=== PATIENT | female | born 1935 | race Caucasian/White ===

== ENCOUNTER → 2019-11-16 10:04 | Outpatient (CLI) | payer MEDICARE, OTHER, SELFPAY ==
--- NOTE | ~2019-11-16 | MR_ITS ---
EXAMINATION: MR lumbar spine wo con EXAM DATE: 11/16/2019 10:41 INDICATION: Radiculopathy, lumbosacral region. Low back pain. TECHNIQUE: Multi-sequential, multiplanar MR images of the lumbar spine were obtained without contrast . Sagittal T1, T2, T2 fat saturation images. Axial T2 weighted images. Comparison is made to prior examination from 11/12/2018. FINDINGS: There is 6 mm anterolisthesis L4 on L5 with moderate disc disease at this level. Also moder ate loss of the L3-4 disc. Mild disc disease at L1-2 and L5-S1. There is 2-3 mm retrolisthesis L1 on L2. There are no suspicious marrow signal abnormalities. The conus medullaris terminates at the T12 l evel and has normal signal intensity and morphology. Paraspinal soft tissue is unremarkable. Level by level evaluation: T12-L1: Disc does not extend beyond the endplate margin. Facet arthropathy: Mild. Neural foraminal stenosis: No stenosis. Central canal stenosis: No stenosis. L1-L2: There is a mild to moderate diffuse disc bulge. Facet arthropathy: Mild. Neural foraminal stenosis: Minimal bilateral. Central canal stenosis: Mild. L2-L3: There is a mild diffuse disc bulge. Facet arthropathy: Mild to moderate . Ligamentum flavum enlargement. Neural foraminal stenosis: No stenosis. Central canal stenosis: Mild. L3-L4: There is a mild to moderate diffuse disc bulge. Facet arthropathy: Mild to moderate. Neural foraminal stenosis: Moderate bilateral. Central canal stenosis: Mild to moderate. L4-L5: There is a large diffuse disc bulge. Facet arthropathy: Severe. Evidence of left hemilaminotomy. Synovial cysts bilaterally projecting int o spinal canal below disc space level. Neural foraminal stenosis: Moderate to severe left, moderate right. Central canal stenosis: Moderate to severe. L5-S1: There is a mild to moderate diffuse disc bulge. Facet arthropathy: Moderate to severe left, moderate right. Neural foraminal stenosis: Mild to moderate bilateral. Central canal stenosis: Mild. Compared to last year, slight decrease in size of synovial cysts at L4-5, slight progression the loss of disc height at this level. IMPRESSION: 1. L4-5 grade 2 anterolisthesis, moderate to severe central canal stenosis. 2. Lesser spondylosis above. Reviewed, dictated and finalized at location A.
== END ==
PROVIDERS: PCP Physician Assistant; Visit Provider Nurse Practitioner Family
DX: M54.17 Radiculopathy, lumbosacral region (principal)
CPT/HCPCS: 72148

== ENCOUNTER → 2021-07-26 10:19 | Outpatient (CLI) | payer MEDICARE, OTHER, SELFPAY ==
--- NOTE | ~2021-07-26 | MR_ITS ---
EXAMINATION: MR lumbar spine wo con DATE: 07/26/2021 11:07 INDICATION: Lumbar radiculopathy. Low back pain. Postlaminectomy syndrome. TECHNIQUE: Magnetic resonance imaging (MRI) of the lumbar spine was performed without intravenous con trast. Sequences included sagittal T2-weighted FSE, sagittal T2-weighted FS FSE, sagittal T1-weighted FSE, and axial T2-weighted FSE. COMPARISON: Lumbar spine MRI 11/16/2019 FINDINGS: There is 3 degrees levocurvature of lumbar spine. There is 6 mm anterolisthesis of L4 on L5 . There is mild chronic anterior wedging of T11 vertebral body. There is mildly decreased disc height at L1-L2, moderately decreased disc height at L3-L4, and severely decreased disc height at L4-L5 and L5-S1. The distal spinal cord signal intensity is normal. The conus medullaris is at T12-L1. The fol lowing disc levels are specifically discussed: L1-L2: The disc is bulging. There is mild bilateral facet joint osteoarthritis. There is mild bilater al neural foraminal stenosis. There is mild central canal stenosis. L2-L3: The disc is bulging. There is moderate bilateral facet joint osteoarthritis. There is mild nell ateral neural foraminal stenosis. There is no central canal stenosis. L3-L4: The disc is bulging and has an annular fissure. There is severe bilateral facet joint osteoart hritis. There is moderate bilateral neural foraminal stenosis. There is mild central canal stenosis w ith posterior decompression. L4-L5: The disc is bulging and has an annular fissure. There is severe bilateral facet joint osteoart hritis. There is moderate right and severe left neural foraminal stenosis. There is mild central kathleen l stenosis with posterior decompression. There is severe stenosis of the lateral recesses. L5-S1: The disc is bulging and has an annular fissure. There is severe bilateral facet joint osteoart hritis. There is moderate right and mild left neural foraminal stenosis. There is mild central canal stenosis. IMPRESSION: 1. Severe lumbar spondylosis, stable from 11/16/2019. Reviewed, dictated and finalized at location A.
== END ==
PROVIDERS: PCP Physician Assistant; Visit Provider Nurse Practitioner Family
DX: M47.27 Other spondylosis with radiculopathy, lumbosacral region (principal); M96.1 Postlaminectomy syndrome, not elsewhere classified
CPT/HCPCS: 72148

== ENCOUNTER → 2023-02-02 09:16 | Outpatient (CLI) | payer MEDICARE, OTHER, SELFPAY ==
--- NOTE | ~2023-02-02 | MR_ITS ---
MRI of the lumbar spine Clinical History: Back pain Technique: Axial T2-weighted images, and sagittal T1-weighted, T2-weighted, and and T2 fat-sat images were acquired. COMPARISON: 07/26/2021 FINDINGS: No acute fracture seen. 7 mm anterolisthesis of L4 over L5 is present, similar to prior exa m. No suspicious bone marrow signal abnormality seen. At L1-L2, there is mild disc bulge with mild facet arthropathy. No central canal stenosis. There is m inimal bilateral neural foraminal narrowing. At L2-L3, there is no significant disc bulge or herniation. There is moderate facet arthropathy. No s collin canal stenosis or neural foraminal narrowing. L3-L4, there is minimal disc bulge and moderate facet arthropathy. No central canal stenosis. There i s severe bilateral neural foraminal narrowing. At L4-L5, there is disc bulge/uncovering, with severe facet arthropathy and mild to moderate central canal stenosis. There is severe bilateral neural foraminal compromise. At L5-S1, there is diffuse disc bulge with advanced facet arthropathy. No central canal stenosis. The re is severe bilateral neural foraminal comprise. Paravertebral soft tissues are unremarkable. Impression: Severe degenerative spondylosis at L3-L4, L4-L5, and L5-S1. 7 mm anterolisthesis of L4 over L5. Reviewed, dictated and finalized at location M. Impression: Severe degenerative spondylosis at L3-L4, L4-L5, and L5-S1. 7 mm anterolisthesis of L4 over L5.
== END ==
PROVIDERS: PCP Physician Assistant; Visit Provider Physician Assistant
DX: M47.26 Other spondylosis with radiculopathy, lumbar region (principal)
CPT/HCPCS: 72148

== ENCOUNTER 2023-02-18 13:15 | Outpatient (CLI) | payer MEDICARE, OTHER, SELFPAY ==
--- NOTE | ~2023-02-18 | MM_ITS ---
EXAMINATION: MM screening kamryn BI w joi HISTORY: Screening TECHNIQUE: Craniocaudal and mediolateral oblique 3-D tomosynthesis images were obtained and synthetic 2-D images were generated. CAD analysis was submitted and interpreted. COMPARISON: Comparison to multiple prior studies sequentially, with oldest reviewed study dated 05/2014. BREAST PARENCHYMAL COMPOSITION: There are scattered areas of fibroglandular density. FINDINGS: There is no evidence of suspicious mass, calcification, or architectural distortion to sugg est malignancy in either breast. There has been no suspicious interval change. IMPRESSION: 1. No mammographic evidence of malignancy. 2. Recommend routine screening mammography in one year. BI-RADS Category 1: Negative Reviewed, dictated and finalized at location A. MECHANICAL ENGINEER
== END 2023-02-18 13:16 ==
PROVIDERS: PCP Physician Assistant; Visit Provider Internal Medicine Medical Oncology
DX: Z12.31 Encounter for screening mammogram for malignant neoplasm of breast (principal)
CPT/HCPCS: 77063; 77067

== ENCOUNTER 2024-07-31 10:46 | Outpatient (CLI) | payer MEDICARE, OTHER, SELFPAY ==
--- NOTE | ~2024-07-31 | MR_ITS ---
MRI of the lumbar spine Clinical History: Radiculopathy Technique: Axial T2-weighted images, and sagittal T1-weighted, T2-weighted, and T2 fat-sat images wer e acquired. COMPARISON: 02/02/2023 Findings: 8 mm anterolisthesis of L4 over L5 is essentially stable from prior exam. No acute fracture . No suspicious bone marrow signal abnormality. At L1-L2, there is minimal disc bulge with moderate facet arthropathy. No central canal stenosis. The re is mild bilateral neural foraminal narrowing. At L2-L3, there is no disc bulge or herniation. There is moderate facet arthropathy. No central canal stenosis or neural foraminal narrowing. At L3-L4, there is mild diffuse disc bulge with moderate facet arthropathy. No central canal stenosis . There is severe bilateral neural foraminal compromise, left worse than right. At L4-L5, there is diffuse disc bulge and uncovering with severe facet arthropathy. There is moderate central canal stenosis. There is severe bilateral neural foraminal compromise. At L5-S1, there is advanced degenerative disc narrowing. There is diffuse disc bulge with severe face t arthropathy. There is 5 mm left synovial cyst. There is no ayaan central canal stenosis. There is s evere bilateral neural foraminal compromise. Paravertebral soft tissues are unremarkable. Impression: 8 mm anterolisthesis of L4 over L5. Severe degenerative spondylosis at L4-L5 and L5-S1. Moderate to severe degenerative spondylosis at L3 -L4. Reviewed, dictated and finalized at [facility]. Impression: 8 mm anterolisthesis of L4 over L5. Severe degenerative spondylosis at L4-L5 and L5-S1. Moderate to severe degenera tive spondylosis at L3-L4.
== END 2024-07-31 10:47 | disposition home or self-care (01) ==
LOC: MICIMG 10:47
PROVIDERS: PCP Physician Assistant; Visit Provider Physician Assistant
DX: M47.26 Other spondylosis with radiculopathy, lumbar region (principal)
CPT/HCPCS: 72148

== ENCOUNTER 2024-08-11 13:41 | Outpatient (CLI) | payer MEDICARE, OTHER, SELFPAY ==
--- NOTE | 2024-08-11 | ECHO_ITS ---
Patient Info Name: Xin Olivares Age: 88 years : 1935 Gender: Female Ht: 62 in Wt: 154 lbs BSA: 1.77 m2 HR: 97 bpm BP: 156 / 77 mmHg Technical Quality: Good Exam Date: 08/11/2024 1:59 PM Exam Location: Echo Lab Patient Status: Outpatient Admit Date: 08/11/2024 Staff Ordering Physician: RaniBernice Power Mule Operator: Claudia Craft RDCS Attending Provider: RaniBernice Exam Type: CA echo doppler color flow Study Info Indications R06.02 - SOB on exertion R01.1 - Cardiac murmur, unspecified Complete two-dimensional, color flow and Doppler transthoracic echocardiogram is performed. Summary 1. Complete two-dimensional, color flow and Doppler transthoracic echocardiogram is performed. 2. Left ventricular systolic function is normal, estimated at 60-65%. 3. The left ventricular diastolic function is indeterminate. 4. Left atrial chamber dimension is enlarged. 5. The mitral valve has thickened leaflets, calcified leaflets and calcified annulus. Cannot rule out a flail leaflet. 6. There is moderate to severe mitral valve regurgitation. Recommendations * Consider KEO for further evaluation of mitral valve. Left Ventricle Left ventricular chamber dimension is normal. Left ventricular systolic function is normal, estimated at 60-65%. There is no increased left ventricular wall thickness. Left ventricular septal wall motion is normal. The left ventricular diastolic function is indeterminate. Right Ventricle Right ventricular chamber dimension is normal. Right ventricular systolic function is normal. Left Atria Left atrial chamber dimension is enlarged. Right Atria Right atrial chamber dimension is normal. Aortic Valve The aortic valve is trileaflet. There is no aortic valve sclerosis. There is no aortic valve stenosis. There is no aortic valve regurgitation. Pulmonic Valve The pulmonic valve is normal. There is no pulmonic valve stenosis. There is mild pulmonic regurgitation. Mitral Valve The mitral valve has thickened leaflets, calcified leaflets and calcified annulus. Cannot rule out a flail leaflet. There is moderate to severe mitral valve regurgitation. Tricuspid Valve The tricuspid valve leaflets are normal. There is no significant tricuspid valve stenosis. There is mild tricuspid valve regurgitation. No pulmonary hypertension, estimated pulmonary arterial systolic pressure is 38 mmHg. Pericardium/Pleural The pericardium appears normal. There is no pericardial effusion. Inferior Vena Cava Normal inferior vena cava with >50% collapse upon inspiration consistent with normal right atrial pressure, 3 mmHg. Aorta The aortic root size at the sinus of Valsalva is normal. The prox ascending aorta size is normal. Left Ventricular Outflow Tract Name Value Normal LVOT 2D LVOT Diameter 1.8 cm LVOT Doppler LVOT Peak Gradient 6 mmHg LVOT Mean Gradient 3 mmHg LVOT VTI 23 cm LVOT VTI/AV VTI Ratio 0.6 LVOT Stroke Volume 60 ml LVOT CO 13.1 l/min LVOT CI 7.4 l/min/m2 Pulmonic Valve Name Value Normal PV Doppler PV Peak Gradient 4 mmHg Mitral Valve Name Value Normal MV Doppler MV Peak Gradient 22 mmHg MV Mean Gradient 10 mmHg MV Decel [place] 1,032 cm/s2 MV PHT 46 ms MV Area (PHT) 4.7 cm2 4.0-5.0 MV Area (Cont Eq VTI) 1.3 cm2 MV Diastolic Function MV E Peak Velocity 165 cm/s MV A Peak Velocity 205 cm/s MV E/A 0.8 MV Decel Time 160 ms MV Annular TDI MV E/e' (Septal) 31.5 <=8.0 MV E/e' (Lateral) 17.3 <=8.0 MV E/e' (Average) 24.4 Tricuspid Valve Name Value Normal TV Regurgitation Doppler TR Peak Velocity 295 cm/s TR Peak Gradient 32 mmHg Estimated PAP/RSVP RA Pressure 3 mmHg <=5 PA Systolic Pressure 38 mmHg <36 RV Systolic Pressure 38 mmHg <36 Aorta Name Value Normal Ascending Aorta Ao Root Diameter (MM) 2.9 cm Ao Root Diam Index (MM) 1.6 cm/m2 Aortic Valve Name Value Normal AV Doppler AV Peak Velocity 187 cm/s AV Peak Gradient 14 mmHg AV Mean Gradient 9 mmHg AV VTI 39 cm AV Area (Cont Eq VTI) 1.5 cm2 >=3.0 AV Area (Cont Eq Hang) 1.7 cm2 AV Regurgitation 2D LVOT Area 2.6 cm2 Ventricles Name Value Normal LV Dimensions 2D/MM IVS Diastolic Thickness (2D) 1.0 cm 0.6-1.0 LVID Diastole (2D) 4.0 cm 3.8-5.2 LVIW Diastolic Thickness (2D) 0.9 cm 0.6-0.9 LVID Systole (2D) 2.4 cm 2.2-3.5 LVOT Diameter 1.8 cm LV Mass (2D Cubed) 118.08 g 67.00-162.00 LV Mass Index (2D Cubed) 67 g/m2 43-95 Relative Wall Thickness (2D) 0.46 LV Fractional Shortening/Ejection Fraction 2D/MM LV Fractional Shortening (2D) 39 % 27-45 LV EF (2D Teichomerz) 70 % 54-74 LV Diastolic Volume (4C MOD) 59 ml LV EF (4C MOD) 66 % LV Diastolic Volume (2C MOD) 83 ml LV EF (2C MOD) 68 % LV Diastolic Volume (BP MOD) 70 ml 46-106 LV Diastolic Volume Index (BP MOD) 39 ml/m2 29-61 LV Systolic Volume (BP MOD) 23 ml 14-42 LV Systolic Volume Index (BP MOD) 13 ml/m2 8-24 LV EF (BP MOD) 67 % 54-74 LV Diastolic Length (4C) 6.7 cm LV Systolic Length (4C) 5.3 cm LV Stroke Volume (4C MOD) 39 ml RV Dimensions 2D/MM RVID Diastole (2D) 3.3 cm 2.5-3.5 Atria Name Value Normal LA Dimensions LA Dimension (MM) 3.9 cm 2.7-3.8 LA Volume (4C A-L) 121 ml LA Volume (BP A-L) 130 ml RA Dimensions RA Area (4C) 12.2 cm2 <=18.0 Report Signatures
--- OUTSIDE RECORDS SUMMARY | 2024-08-12 14:07 | XMS_ITS | Clinical Summary ---
Author Organization [facility] Address [facility] [place] [address] Care Team Providers Care Surveyor Hydrographic Name Role Phone Bernice Saravia Primary Care Provider [phone] Denis Dao MD Unavailable [phone] Misti Sanches NP Unavailable [phone] Allergies Active Allergy Reactions Criticality Noted Date Comments Hydrocodone Stomach upset Low 07/30/2016 Stomach/GI Upset Indapamide Other (See comments) Low 09/23/2018 hyponatremia Lisinopril Cough Low 09/13/2019 Hydrocodone-Acetaminoph en Unknown 11/08/2017 Medications calcium carbonate-vitamin D3 500 mg(1,250mg) -400 unit tablet Take 1 tablet by mouth 2 (two) times a day 60 tablet 3 05/10/19 20 Active Narcan 4 mg/actuation spray,non-aerosol 03/04/20 20 Active gabapentin (NEURONTIN) 600 mg tablet Take 1 tablet (600 mg total) by mouth 3 (three) times a day 270 tablet 4 07/28/19 24 Active losartan (COZAAR) 100 mg tabletIndications :Hypertension associated with diabetes (HCC) TAKE 1 TABLET BY MOUTH DAILY 90 tablet 3 10/13/19 24 Active omeprazole (PriLOSEC) 20 mg capsuleIndication s:Gastroesophagea l reflux disease without esophagitis Take 2 capsules (40 mg total) by mouth daily 01/19/20 24 Active traZODone (DESYREL) 150 mg tabletIndications :Anxiety TAKE 1 TABLET BY MOUTH AT NIGHT 90 tablet 3 06/07/19 25 Active amLODIPine (NORVASC) 5 mg tabletIndications :Hypertension associated with diabetes (HCC) TAKE 1 TABLET BY MOUTH DAILY 90 tablet 3 06/07/19 25 Active levothyroxine (SYNTHROID) 75 mcg tabletIndications :Acquired hypothyroidism TAKE 1 TABLET BY MOUTH DAILY 90 tablet 3 06/07/[address] (CYMBALTA) 60 mg capsuleIndication s:Anxiety TAKE 1 CAPSULE BY MOUTH TWICE DAILY 180 capsule 3 07/13/19 25 Active ipratropium (ATROVENT) 42 mcg (0.06 %) nasal sprayIndications: Non-seasonal allergic rhinitis, unspecified trigger Administer 2 sprays into each nostril 4 (four) times a day 15 mL 2 07/20/19 Active metFORMIN (GLUCOPHAGE) 500 mg tabletIndications :Controlled type 2 diabetes mellitus with complication, without long-term current use of insulin (HCC) TAKE 1 TABLET BY MOUTH DAILY 90 tablet 3 06/07/192024 Discontinued Active Problems Problem Noted Date Diagnosed Date Non-seasonal allergic rhinitis 07/31/2024 Assessment & Plan (08/04/2024 9:36 PM CDT): Continue antihistamine and Flonase as needed Murmur 07/31/2024 Assessment & Plan (08/04/2024 9:38 PM CDT): This is a significant, separately identifiable problem that was evaluated and managed on the same day as the wellness exam Patient has noticed increased shortness of breath. On exam a new murmur was audible. Systolic blowing murmur. Suspect aortic stenosis. She has not had any problems in the past. Will order echo for evaluation of heart structure and make referral to Cardiology. If patient would begin to experience chest pain increased shortness of breath swelling in the legs difficulty laying flat she is to go to the ER for further evaluation immediately. She is in agreement of the plan SOB (shortness of breath) on exertion 07/31/2024 Assessment & Plan (08/04/2024 9:38 PM CDT): This is a significant, separately identifiable problem that was evaluated and managed on the same day as the wellness exam Patient has noticed increased shortness of breath. On exam a new murmur was audible. Systolic blowing murmur. Suspect aortic stenosis. She has not had any problems in the past. Will order echo for evaluation of heart structure and make referral to Cardiology. If patient would begin to experience chest pain increased shortness of breath swelling in the legs difficulty laying flat she is to go to the ER for further evaluation immediately. She is in agreement of the plan Obesity (BMI 30-39.9) 01/13/2023 Assessment & Plan (07/19/2024 1:21 PM CDT): Discussed the patient's BMI. The BMI is above average. BMI management plan is completed. BMI Follow-up includes: nutrition counseling, exercise counseling and education provided. Assessment & Plan (01/19/2024 2:46 PM CDT): Discussed the patient's BMI. The BMI is above average. BMI management plan is completed. BMI Follow-up includes: nutrition counseling, exercise counseling and education provided. Assessment & Plan (08/09/2023 1:21 AM CDT): Discussed the patient's BMI. The BMI is above average. BMI management plan is completed. BMI Follow-up includes: nutrition counseling, exercise counseling and education provided. Assessment & Plan (01/13/2023 1:46 PM CDT): Discussed the patient's BMI. The BMI is above average. BMI management plan is completed. BMI Follow-up includes: nutrition counseling, exercise counseling and education provided. BMI 29.0-29.9,adult 01/13/2023 Assessment & Plan (08/04/2024 9:36 PM CDT): Weight/BMI is in healthy range. Continue healthy lifestyle to maintain. Assessment & Plan (01/19/2024 2:46 PM CDT): Discussed the patient's BMI. The BMI is above average. BMI management plan is completed. BMI Follow-up includes: nutrition counseling, exercise counseling and education provided. Assessment & Plan (08/09/2023 1:22 AM CDT): Discussed the patient's BMI. The BMI is above average. BMI management plan is completed. BMI Follow-up includes: nutrition counseling, exercise counseling and education provided. Assessment & Plan (01/13/2023 1:46 PM CDT): Discussed the patient's BMI. The BMI is above average. BMI management plan is completed. BMI Follow-up includes: nutrition counseling, exercise counseling and education provided. Bilateral hand numbness 01/13/2023 Assessment & Plan (01/13/2023 6:14 PM CDT): Symptoms distribution of numbness seem consistent with bilateral carpal tunnel. Reviewed pathophysiology as well as pictures to indicate the nurse involved. Discussed treatment options and prevention options including repetitive motion. Encouraged cock-up splints at night and during the day as tolerated. She is already on gabapentin for her back. Can use an anti-inflammatory as tolerated. Discussed referral to surgeon for intervention or monitoring short term to see if we can get improvement. She prefers more conservative measures so will have her call in a couple of months to see if her symptoms have improved. If they persist will consider referral to Dr. Misti Palma at [facility]. Medicare annual wellness visit, subsequent 07/31 Assessment & Plan (08/04/2024 9:33 PM CDT): Encouraged healthy lifestyle, good nutrition and exercise. Encouraged Calcium and Vitamin D and weight bearing exercise for bone health. Reviewed immunizations. Reviewed age appropirate screenings. Medicare Wellness Documentation is completed within the chart Assessment & Plan (01/19/2024 2:45 PM CDT): Encouraged and provided tools for healthy lifestyle, diet, and daily exercise. Reviewed immunizations and age appropriate labs and screenings. Assessment & Plan (08/09/2023 1:21 AM CDT): Encouraged healthy lifestyle, good nutrition and exercise. Encouraged Calcium and Vitamin D and weight bearing exercise for bone health. Reviewed immunizations. Reviewed age appropirate screenings. Medicare Wellness Documentation is completed within the chart Assessment & Plan (07/31/2022 10:50 PM CDT): Encouraged healthy lifestyle, good nutrition and exercise. Encouraged Calcium and Vitamin D and weight bearing exercise for bone health. Reviewed immunizations. Reviewed age appropirate screenings. Medicare Wellness Documentation is completed within the chart Personal history of radiation therapy 06/16/2021 History of 2019 novel coronavirus disease (COVID -19) 05/19/2020 Assessment & Plan (05/19/2020 9:09 PM BOROUGH COORDINATOR): Patient to presume positive COVID until results are available and self isolate for 14 days from the onset of sxs. Check COVID test thru [facility] collection site in [place]. Treat sxs with Tylenol, Cough/cold medication otc and add VitD 5,000IU daily and Zinc 50mg daily. Monitor sxs and call or go to the ER if has any of the following: --trouble breathing --persistent pain or pressure in the chest --new confusion --inability to wake or stay awake -- bluish lips or face If patient has been in close contact with anyone, they should be notified and instructed to quarantine per CDC guidelines for 14 days after last exposure to the positive COVID patient and monitor closely for symptoms of COVID. If they appear they should be tested. Close contact includes: --You were within 6 feet of someone who has COVID-19 for a total of 15 minutes or more --You provided care at home to someone who is sick with COVID-19 --You had direct physical contact with the person (hugged or kissed them) --You shared eating or drinking utensils --They sneezed, coughed, or somehow got respiratory droplets on you Additional Steps to avoid exposure/spread include: Avoid crowded places where close contact with others may occur, such as shopping centers, movie theaters, dormitories, or stadiums. Avoid transit where close contact with others may occur, such as planes, trains, and buses. Maintain a distance of approximately 6 feet from other people whenever possible (spacing out if you are in a line, leaving 2 seats in between others at a waiting room when possible). Wash your hands with soap and water often. If needed, use a hand brick tester that contains at least 60% alcohol. Clean and disinfect frequently touched surfaces such as tables, doorknobs, countertops, etc daily. Avoid touching your eyes, nose, and mouth when possible. 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 Currently on gabapentin 600 mg t.i.d.. Patient continues to have symptoms in her left buttocks radiating down into the thigh and the calf. She is not seeing enough control with her other symptoms. Last MRI was in 2022. Will go ahead and check another MRI to see if there is any change to see if she would benefit from returning to neurosurgery Assessment & Plan (01/19/2024 2:48 PM CDT): Patient has long standing low back pain with associated radicular symptoms down left lateral leg. Dose of gabapentin has been increased to 600 mg TID with minimal relief. Patient is also on Cymbalta 60 mg for mood as well. Will increased Cymbalta to 60 mg BID for nerve pain relief and will re-assess. Patient has seen pain management and received injections as well as PT, which she reports did not alleviate her pain. Will have patient see pain management again or consider another office for second opinion as patient is unable to find relief. Takes ibuprofen as needed. Recommended topical lidocaine patches, ice, heat, for as needed relief. Assessment & Plan (01/13/2023 6:14 PM CDT): Patient has had persistent lumbar back pain with radicular symptoms down the left lower extremity. Has full control of bowel and bladder. Has been working with pain management as well as physical therapy and just can not get improvement. Does not see a significant change with the gabapentin. Has not had an MRI since 2019. Recommend repeating an MRI lumbar spine without contrast as her symptoms are increasing especially in the left lateral lower extremity. Order will be placed Assessment & Plan (07/31/2022 10:50 PM CDT): Continue per pain management. Continue gabapentin 300 t.i.d.. Was referred to neurosurgeon will await recommendation Assessment & Plan (02/07/2022 9:23 PM CDT): Continue per pain management. Assessment & Plan (07/20/2021 10:18 PM CDT): Continue per pain management has an appointment with Neurosurgery in July. Assessment & Plan (01/07/2021 9:53 PM CDT): Continue per Pain management Assessment & Plan (03/06/2020 5:15 PM BOROUGH COORDINATOR): Continue with pain management. May call if desires to start Gabapentin [facility] will benefit from consistent activity. Assessment & Plan (03/05/2019 9:23 PM BOROUGH COORDINATOR): Conitnue with Pain management Assessment & Plan (11/02/2018 3:51 PM CDT): Persistent lumbar pain with radiation into left LE. 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 Was told could reoccur. PT has helped but the sxs are not resolving. Recommend MRI lumbar spine. Prefers [facility] so comparison can be made. Controlled type 2 diabetes celio hunter without complication, without long-term current use of insulin 09/04/2018 Assessment & Plan (08/04/2024 9:30 PM CDT): Stressed importance of continued A1c control to minimize the custodial effects of diabetes. Bring accuchecks to office when instructed to do so. Check A1c about every 3-6 months. Take medication as prescribed. Get annual eye exam. Encouraged MAGDY/Statin if able to tolerate. Encouraged weight control and encouraged diabetic diet and exercise. A1c has been tightly controlled. Currently at 5.9. She has been on Glucophage 500 mg daily. Discussed discontinuing and monitoring as goal is to be below 7. She is in agreement to stop the metformin. Recheck labs in about 4 months reassess at that time Assessment & Plan (01/30/2024 4:53 PM CDT): Stressed importance of continued A1c control to minimize the custodial effects of diabetes. Bring accuchecks to office when instructed to do so. Check A1c about every 3-6 months. Take medication as prescribed. Get annual eye exam. Encouraged MAGDY/Statin if able to tolerate. Encouraged weight control and encouraged diabetic diet and exercise. A1c is still tightly controlled. Continue Glucophage 500 daily Assessment & Plan (08/09/2023 1:21 AM CDT): Stressed importance of continued A1c control to minimize the custodial effects of diabetes. Bring accuchecks to office when instructed to do so. Check A1c about every 3-6 months. Take medication as prescribed. Get annual eye exam. Encouraged MAGDY/Statin if able to tolerate. Encouraged weight control and encouraged diabetic diet and exercise. A1c is still tightly controlled. Continue Glucophage 500 daily Assessment & Plan (07/31/2022 10:49 PM CDT): Stressed importance of continued A1c control to minimize the rodent exterminator effects of diabetes. Bring accuchecks to office when instructed to do so. Check A1c about every 3-6 months. Take medication as prescribed. Get annual eye exam. Encouraged MAGDY/Statin if able to tolerate. Encouraged weight control and encouraged diabetic diet and exercise. Tightly controlled. Continue Glucophage 500 daily Assessment & Plan (07/20/2021 10:18 PM CDT): Stressed importance of continued A1c control to minimize the rodent exterminator effects of diabetes. Bring accuchecks to office when instructed to do so. Check A1c about every 3-6 months. Take medication as prescribed. Get annual eye exam. Encouraged MAGDY/Statin if able to tolerate. Encouraged weight control and encouraged diabetic diet and exercise. She is at goal with the Glucophage. Assessment & Plan (01/07/2021 9:52 PM CDT): Stressed importance of continued A1c control to minimize the rodent exterminator effects of diabetes. Bring accuchecks to office when instructed to do so. Check A1c about every 3-6 months. Take medication as prescribed. Get annual eye exam. Encouraged MAGDY/Statin if able to tolerate. Encouraged weight control and encouraged diabetic diet and exercise. Assessment & Plan (08/03/2020 11:49 PM CDT): Stressed importance of continued A1c control to minimize the rodent exterminator effects of diabetes. Bring accuchecks to office when instructed to do so. Check A1c about every 3-6 months. Take medication as prescribed. Get annual eye exam. Encouraged MAGDY/Statin if able to tolerate. Encouraged weight control and encouraged diabetic diet and exercise. Check labs for stability. 08/2019 A1c was 5.6 Assessment & Plan (09/24/2019 3:49 PM CDT): Stressed importance of continued A1c control to minimize the custodial effects of diabetes. Bring accuchecks to office when instructed to do so. Check A1c about every 3-6 months. Take medication as prescribed. Get annual eye exam. Encouraged MAGDY/Statin if able to tolerate. Encouraged weight control and encouraged diabetic diet and exercise. Continue metformin. Assessment & Plan (03/05/2019 9:24 PM BOROUGH COORDINATOR): Stressed importance of continued A1c control to minimize the custodial effects of diabetes. Bring accuchecks to office when instructed to do so. Check A1c about every 3-6 months. Take medication as prescribed. Get annual eye exam. Encouraged MAGDY/Statin if able to tolerate. Encouraged weight control and encouraged diabetic diet and exercise. Hypertension associated with diabetes 09/04/2018 Assessment & Plan (08/04/2024 9:31 PM CDT): Bp is stable/in acceptable range for any co-morbidities. Encouraged to limit sodium intake and exercise for weight control. Continue amlodipine and losartan Assessment & Plan (01/19/2024 2:49 PM CDT): BP stable. Encouraged to limit sodium intake and maintain healthy diet and exercise. Continue amlodipine 5 mg, losartan 100 mg. Assessment & Plan (08/09/2023 1:21 AM CDT): Bp is stable/in acceptable range for any co-morbidities. Encouraged to limit sodium intake and exercise for weight control. Continue losartan 100 and Norvasc 5 mg Assessment & Plan (07/31/2022 10:49 PM CDT): Bp is stable/in acceptable range for any co-morbidities. Encouraged to limit sodium intake and exercise for weight control. Continue losartan and Norvasc Assessment & Plan (02/07/2022 9:22 PM CDT): Bp is stable/in acceptable range for any co-morbidities. Encouraged to limit sodium intake and exercise for weight control. Stressed importance of continued A1c control to minimize the custodial effects of diabetes. Bring accuchecks to office when instructed to do so. Check A1c about every 3-6 months. Take medication as prescribed. Get annual eye exam. Encouraged MAGDY/Statin if able to tolerate. Encouraged weight control and encouraged diabetic diet and exercise. Both are well controlled. Continue metformin and losartan and amlodipine. Assessment & Plan (07/20/2021 10:18 PM CDT): Bp is stable/in acceptable range for any co-morbidities. Encouraged to limit sodium intake and exercise for weight control. Continue Norvasc and losartan Assessment & Plan (01/07/2021 9:51 PM CDT): Bp is stable/in acceptable range for any co-morbidities. Encouraged to limit sodium intake and exercise for weight control. Continue amldopine and losartan Assessment & Plan (08/03/2020 11:48 PM CDT): Bp is stable/in acceptable range for any co-morbidities. Encouraged to limit sodium intake and exercise for weight control. Continue losartan and amlodipine Assessment & Plan (09/24/2019 3:47 PM CDT): Bp is stable/in acceptable range for any co-morbidities. Encouraged to limit sodium intake and exercise for weight control. Continue losartan Assessment & Plan (03/05/2019 9:23 PM BOROUGH COORDINATOR): Bp is stable/in acceptable range for any co-morbidities. Encouraged to limit sodium intake and exercise for weight control. Acquired hypothyroidism 09/04/2018 Assessment & Plan (08/04/2024 9:31 PM CDT): Continue levothyroxine 75 mcg. Monitor labs. Assessment & Plan (08/09/2023 1:22 AM CDT): Continue levothyroxine. Monitor labs. Assessment & Plan (07/31/2022 10:49 PM CDT): Continue levothyroxine. Monitor labs. Assessment & Plan (02/07/2022 9:23 PM CDT): Continue levothyroxine. Monitor labs. Assessment & Plan (07/20/2021 10:18 PM CDT): Continue levothyroxine. Monitor labs. Assessment & Plan (01/07/2021 9:51 PM CDT): Continue levothyroxine. Monitor labs. Assessment & Plan (08/03/2020 11:49 PM CDT): Continue levothyroxine Assessment & Plan (09/24/2019 3:50 PM CDT): Continue replacement with levothyroxine Assessment & Plan (03/05/2019 9:24 PM BOROUGH COORDINATOR): Continue synthroid Check labs IBS (irritable bowel syndrome) 09/04/2018 History of hysterectomy 09/04/2018 Anxiety 09/04/2018 Assessment & Plan (08/04/2024 9:32 PM CDT): Patient notes control of her anxiety symptoms with Cymbalta 120 mg daily. Assessment & Plan (01/19/2024 2:51 PM CDT): Patient reports feeling well. No longer taking Klonopin. Will increase Cymbalta to 60 mg BID for nerve pain. Assessment & Plan (08/09/2023 1:20 AM CDT): Stable with Cymbalta. Using Klonopin just a couple times a month Assessment & Plan (07/31/2022 10:49 PM CDT): Patient with persistent anxiety. Doing well with Cymbalta appearing using Klonopin just a few times in a month. Assessment & Plan (02/07/2022 9:23 PM CDT): Well controlled with Cymbalta. She is just using Klonopin a few times a month Assessment & Plan (07/20/2021 10:18 PM CDT): Continue Cymbalta and p.r.n. Klonopin Assessment & Plan (01/07/2021 9:53 PM CDT): Stable with cymbalta. Still has klonopin to use prn Assessment & Plan (09/24/2019 3:53 PM CDT): Continue Cymbalta and Klonopin Assessment & Plan (03/05/2019 9:25 PM BOROUGH COORDINATOR): Continue with the Cymbalta Assessment & Plan (09/18/2018 5:43 PM CDT): STOP Zoloft and Start Cymbalta 60mg one daily with prn Clonazepam Gastroesophageal reflux disease without esophagi tis 09/04/2018 Assessment & Plan (08/04/2024 9:32 PM CDT): Continue PPI p.r.n. Assessment & Plan (01/19/2024 2:52 PM CDT): Patient reports chronic cough with feeling of coughing something up in back of throat. Will increase omeprazole to 40 mg as symptoms may be related to acid reflux. Will continue to monitor. Assessment & Plan (08/09/2023 1:21 AM CDT): Greatest stable currently with p.r.n. omeprazole Assessment & Plan (07/31/2022 10:49 PM CDT): Continue PPI p.r.n. Assessment & Plan (02/07/2022 9:23 PM CDT): Stable uses medication p.r.n. Assessment & Plan (09/24/2019 3:49 PM CDT): continue PPI Assessment & Plan (03/05/2019 9:23 PM BOROUGH COORDINATOR): Continue PPI prn Malignant neoplasm of centra l portion of right breast in female, estrogen receptor positive 10/01/2017 Cancer Staging:Clinical stage from 11/09/2017: ER: Positive - Signed by Liban Smith MD on 11/09/2017 Overview (09/04/2018): On Anastrazole Assessment & Plan (01/19/2024 2:50 PM CDT): Hx of breast cancer. Has completed anastrozole. Continues to be monitored through Oncology. Assessment & Plan (08/09/2023 1:20 AM CDT): Continue per Oncology. Has just completed anastrozole continue to monitor closely through Oncology Assessment & Plan (07/31/2022 10:48 PM CDT): Patient is approaching the 5th year of anastrozole. She is planning on stopping it in October. Will then continue with Oncology for close monitoring. Assessment & Plan (07/20/2021 10:16 PM CDT): Continue per Oncology. Actively treated with anastrozole Assessment & Plan (01/07/2021 9:52 PM CDT): Continue per onc. Still on Anastrazole Assessment & Plan (09/24/2019 3:53 PM CDT): Per Dr. Smith. Continues Anastrazole per his instruction Resolved Problems Problem Noted Date Diagnosed Date Resolved Date Breast cancer screening by mammogram 01/30/2024 08/04/2024 Menopause 01/30/2024 07/31/2024 Flu vaccine need 01/30/2024 07/31/2024 Need for immunization against influenza 01/13/2023 08/09/2023 Assessment & Plan (01/13/2023 6:15 PM CDT): Flu vaccine updated in the office today Obesity (BMI 30-39.9) 07/14/20222022 Assessment & Plan (07/14/2022 1:45 PM CDT): Discussed the patient's BMI. The BMI is above average. BMI management plan is completed. BMI Follow-up includes: nutrition counseling, exercise counseling and education provided. BMI 30.0-30.9,adult 07/14/2022 01/14/20 Assessment & Plan (07/14/2022 1:44 PM CDT): Discussed the patient's BMI. The BMI is above average. BMI management plan is completed. BMI Follow-up includes: nutrition counseling, exercise counseling and education provided. Fatigue 01/13/2022 07/31/2024 Assessment & Plan (08/09/2023 1:22 AM CDT): Probably multifactorial. Check labs and followup to re-evaluate Assessment & Plan (02/07/2022 9:23 PM CDT): Probably multifactorial. Check labs and followup to re-evaluate BMI 31.0-31.9,adult 01/13/2022 07/15/19 23 Assessment & Plan (02/07/2022 9:25 PM CDT): Discussed the patient's BMI. The BMI is above average. BMI management plan is completed. BMI Follow-up includes: nutrition counseling, exercise counseling and education provided. Flu vaccine need 01/13/2022 08/09/2023 Assessment & Plan (02/07/2022 9:24 PM CDT): Flu vaccine updated in the office BMI 31.0-31.9,adult 07/10/2021 02/08/20 22 Assessment & Plan (07/10/2021 1:50 PM CDT): Obesity is unchanged. Discussed the patient's BMI. The BMI is above average. BMI management plan is completed. BMI Follow-up includes: nutrition counseling, exercise counseling and education provided. Obesity (BMI 30-39.9) 07/10/20212022 Assessment & Plan (02/07/2022 9:23 PM CDT): Discussed the patient's BMI. The BMI is above average. BMI management plan is completed. BMI Follow-up includes: nutrition counseling, exercise counseling and education provided. Assessment & Plan (07/10/2021 1:50 PM CDT): Obesity is unchanged. Discussed the patient's BMI. The BMI is above average. BMI management plan is completed. BMI Follow-up includes: nutrition counseling, exercise counseling and education provided. Obesity (BMI 30-39.9) 01/07/20212021 Assessment & Plan (01/07/2021 1:49 PM CDT): Obesity is unchanged. Discussed the patient's BMI. The BMI is above average. BMI management plan is completed. BMI Follow-up includes: nutrition counseling, exercise counseling and education provided. BMI 31.0-31.9,adult 01/07/2021 07/11/19 Assessment & Plan (01/07/2021 1:49 PM CDT): Obesity is unchanged. Discussed the patient's BMI. The BMI is above average. BMI management plan is completed. BMI Follow-up includes: nutrition counseling, exercise counseling and education provided. Pre-diabetes 08/03/2020 01/07/2021 Flu vaccine need 03/06/2020 01/07/2021 Assessment & Plan (03/06/2020 5:15 PM BOROUGH COORDINATOR): Updated in office today Obesity (BMI 30.0-34.9) 03/06/202012/12 Assessment & Plan (07/16/2020 1:56 PM CDT): Obesity is unchanged. Discussed the patient's BMI. The BMI is above average. BMI management plan is completed. BMI Follow-up includes: nutrition counseling, exercise counseling and education provided. Assessment & Plan (03/06/2020 5:18 PM BOROUGH COORDINATOR): Obesity is unchanged. Discussed the patient's BMI. The BMI is above average. BMI management plan is completed. BMI Follow-up includes: nutrition counseling, exercise counseling and education provided. Medicare annual wellness visit, subsequent 09/24/2019 07/20/2021 Assessment & Plan (01/07/2021 9:54 PM CDT): Encouraged healthy lifestyle, good nutrition and exercise. Encouraged Calcium and Vitamin D and weight bearing exercise for bone health. Reviewed immunizations. Reviewed age appropirate screenings. Medicare Wellness Documentation is completed within the chart Assessment & Plan (09/24/2019 3:55 PM CDT): Encouraged healthy lifestyle, good nutrition and exercise. Encouraged Calcium and Vitamin D and weight bearing exercise for bone health. Reviewed immunizations Reviewed age appropirate screenings. Documentation is on the chart. BMI 30.0-30.9,adult 09/13/2019 01/08/20 21 Assessment & Plan (03/06/2020 5:17 PM BOROUGH COORDINATOR): Obesity is unchanged. Discussed the patient's BMI. The BMI is above average. BMI management plan is completed. BMI Follow-up includes: nutrition counseling, exercise counseling and education provided. Assessment & Plan (09/13/2019 9:24 AM CDT): Obesity is unchanged. Discussed the patient's BMI. The BMI is above average. BMI management plan is completed. BMI Follow-up includes: nutrition counseling, exercise counseling and education provided. Obesity (BMI 30-39.9) 09/13/20192020 Assessment & Plan (07/16/2020 1:56 PM CDT): Obesity is unchanged. Discussed the patient's BMI. The BMI is above average. BMI management plan is completed. BMI Follow-up includes: nutrition counseling, exercise counseling and education provided. Assessment & Plan (09/13/2019 9:24 AM CDT): Obesity is unchanged. Discussed the patient's BMI. The BMI is above average. BMI management plan is completed. BMI Follow-up includes: nutrition counseling, exercise counseling and education provided. Need for immunization against influenza 03/05/2019 03/06/2020 Assessment & Plan (03/05/2019 9:26 PM BOROUGH COORDINATOR): Updated in office today Other fatigue 09/04/2018 07/31/2024 Panic attack 09/04/2018 07/31/2024 Puncture wound of left index finger 08/07/2018 09/24/2019 Assessment & Plan (09/18/2018 5:41 PM CDT): Healed without incident Assessment & Plan (08/07/2018 12:12 AM CDT): Area appears clean without s/s infection. Keep area clean and dry and use WALLACE to the area. If s/s infection appear. Call immediately for antibiotic. BMI 26.0-26.9,adult 08/03/2018 09/13/19 20 Assessment & Plan (03/05/2019 9:25 PM BOROUGH COORDINATOR): Weight/BMI is in healthy range. Continue healthy lifestyle to maintain. Assessment & Plan (11/02/2018 3:24 PM CDT): Weight/BMI is in healthy range. Continue healthy lifestyle to maintain. Assessment & Plan (08/07/2018 12:12 AM CDT): Weight/BMI is in healthy range. Continue healthy lifestyle to maintain. Encounters Date Type Department Care Team Description 08/01/2024 Results Follow-Up [facility] [address] [place] [phone] Bernice Saravia PA 07/19/2024 1:30 PM CDT Office Visit [address] [place] [phone] Bernice Saravia PA Medicare annual wellness visit, subsequent (Primary Dx); SOB (shortness of breath) on exertion; Murmur; Non-seasonal allergic rhinitis, unspecified trigger; Lumbar back pain with radiculopathy affecting left lower extremity; Gastroesophageal reflux disease without esophagitis; Anxiety; Acquired hypothyroidism; Hypertension associated with diabetes (HCC); Controlled type 2 diabetes mellitus without complication, without long-term current use of insulin (HCC); BMI 29.0-29.9,adult 07/14/2024 Results Follow-Up [address] [place] [phone] Bernice Saravia PA 07/10/2024 Orders Only [address] [place] [phone] Bernice Saravia PA Hypertension associated with diabetes (HCC) (Primary Dx); Acquired hypothyroidism; Controlled type 2 diabetes mellitus with complication, without long-term current use of insulin (HCC); Medicare annual wellness visit, subsequent; Other fatigue; Hypercholesteremia 06/15/2024 Results Follow-Up [address] [place] [phone] Bernice Saravia PA 06/15/2024 Results Follow-Up [address] [phone] Bernice Saravia PA 06/14/2024 1:29 PM BOROUGH COORDINATOR - 06/14/2024 11:59 PM BOROUGH COORDINATOR Hospital Encounter [facility] [address] [address] Menopause Discharge Disposition: Discharge to home or self care 06/14/2024 1:28 PM BOROUGH COORDINATOR - 06/14/2024 11:59 PM BOROUGH COORDINATOR Hospital Encounter [facility] [address] [address] Discharge Disposition: Discharge to home or self care from Last 3 Months Immunizations Immunization Administration Dates Next Due Influenza, Quadrivalent, Hig h Dose, Preservative Free, Intrr 01/13/2023,01/13/2022,01/29/2021,01/30 Influenza, Trivalent, High D ose, Split, Preservative Free, Intramuscular 01/19/2024,02/02/2019,01/05/2018,01/26,01/31/2016 Influenza, Trivalent, IM (MDV) 12/12/2015 Influenza, Unspecified 05/13/2022(Deferr ed: Patient Refused),01/23/2018,02/09/2017, 010 Moderna SARS-CoV-2 Monovalen t Vaccination (12+ YRS) 03/10/2021,07/01/2020,05/30/2020 Pneumococcal Conjugate PCV 13 01/10/2015 Pneumococcal Conjugate, Unspecified 02/09/2014 Pneumococcal Polysaccharide PPV23 09/08/2018,04/2014 Tdap 08/07/2018 ZOSTER LIVE 02/09/2014,01/10/2009 Surgical History Surgery Date Site/Laterality Comments BREAST LUMPECTOMY BREAST BIOPSY HYSTERECTOMY OOPHORECTOMY BACK SURGERY THYROID SURGERY COLONOSCOPY Medical History Medical History Date Comments Breast cancer (HCC) Diabetes mellitus (HCC) 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 Never 07/19/2024 Q2: How many drinks containi ng alcohol do you have on a typical day when you are drinking? Patient does not drink Q3: How often do you have si x or more drinks on one occasion? Never 07/19/2024 PHQ-2 Answer Date Recorded PHQ-2 Total Score (If total score is 3 or more points, staff should administer the PHQ-9) 0 07/19/2024 Comments No Sex and Gender Information Value Date Recorded Sex Assigned at Not on file Legal Sex Female 3:12 AM BOROUGH COORDINATOR Gender Identity Not on file Sexual Orientation Not on file Obstetrics History Para Term AB IAB SAB Ectopic Multiple Livin g Live Births 2 Date Outcome GA Total Labor Labor/2nd/3rd Weight Sex Type Anes PTL Bethanie A1 A5 Name Clin Last Filed Vital Signs Vital Sign Reading Time Taken Comments Blood Pressure 128/72 07/19/2024 1:20 PM CDT Pulse 107 07/19/2024 1:20 PM CDT Temperature 36.8 C (98.2 F) 07/19/2024 1:20 PM CDT Respiratory Rate 18 01/19/2024 1:27 PM CDT Oxygen Saturation 96% 07/19/2024 1:20 PM CDT Inhaled Oxygen Concentration - - Weight 70.3 kg (155 lb) 07/19/2024 1:20 PM CDT Height 153.7 cm (5' 0.51 ) 07/19/2024 1:20 PM CD T Body Mass Index 29.76 07/19/2024 1:20 PM CDT Plan of Treatment Health Maintenance Due Date Last Done Comments Hepatitis B Screening 10/05/1953 Foot Exam 07/16/2021 07/16/2020, 02/02/2019 Zoster Vaccine (3 of 3) 07/21/2023 05/26/19, 02/09/2014, 01/10/2009 Covid-19 Vaccine (2023-2 5 season) 2023 03/10/2021, 07/01/2020, 05/30/2020 Hemoglobin A1C 01/12/2025 07/13/2024, 10/2023, 07/06/2022, Additional history exists Dilated Eye Exam 01/18/2025 01/19/2024, 04/2021, 08/01/2020 Albumin Creatinine Ratio, Urine 07/13/2025 , 01/17/2024 Lipid Panel 07/13/2025 07/13/2024, 10/2023, 07/06/2022, Additional history exists eGFR 07/13/2025 07/13/2024, 10/2023, 11/24/2022, Additional history exists Depression Screening 07/19/2025 07/19/2024, 01/19/2024, 07/28/2023, Additional history exists Fall Risk Assessment 07/19/2025 07/19/2024, 01/19/2024, 07/28/2023, Additional history exists Well Visit 65+ 07/19/2025 07/19/2024, 07/11, 07/14/2022, Additional history exists Osteoporosis Screening-Bone Density Scan 06/14/2026 06/14/2024, 10/24/2020 DTaP/Tdap/Td Vaccine (2 - Td or Tdap) 08/07/2028 08/07/2018 Pneumococcal vaccine 65+ Completed 019, 01/10/2015, 01/10/2015, Additional history exists Influenza Vaccine Completed 01/19/2024, , 01/13/2022, Additional history exists Procedures Procedure Name Priority Date/Time Associated Diagnosis Comments MRI LUMBAR SPINE WO CONTRAST Schedule Routine, Read Routine (OP Routine) 07/31/2024 Lumbar back pain with radiculopathy affecting left lower extremity ALBUMIN CREATININE RATIO, URINE Routine 07/13/2024 12:54 PM CDT Controlled type 2 diabetes mellitus with complication, without long-term current use of insulin ([facility]) Medicare annual wellness visit, subsequent LIPID PANEL Routine 07/13/2024 12:52 PM CDT Medicare annual wellness visit, subsequent Hypercholesteremia TSH Routine 07/13/2024 12:52 PM CDT Acquired hypothyroidism Medicare annual wellness visit, subsequent HEMOGLOBIN A1C Routine 07/13/2024 12:52 PM CDT Controlled type 2 diabetes mellitus with complication, without long-term current use of insulin ([facility]) Medicare annual wellness visit, subsequent CBC WITH AUTO DIFFERENTIAL Routine 07/13/2024 12:52 PM CDT Medicare annual wellness visit, subsequent Other fatigue COMPREHENSIVE METABOLIC PANEL Routine 07/13/2024 12:52 PM CDT Hypertension associated with diabetes (HCC) Controlled type 2 diabetes mellitus with complication, without long-term current use of insulin (HCC) Medicare annual wellness visit, subsequent DEXA AXIAL SKELETON BONE DENSITY 1 OR MORE SITES Schedule Routine, Read Routine (OP Routine) 06/14/2024 1:56 PM BOROUGH COORDINATOR Menopause SCREENING MAMMOGRAM BILATERAL W MP Schedule Routine, Read Routine (OP Routine) 06/14/2024 1:42 PM BOROUGH COORDINATOR Breast cancer screening by mammogram DIABETES EYE EXAM Routine 01/19/2024 9:29 AM CDT from Last 3 Months or Most Recently Relevant to Health Maintenance Results * (ABNORMAL) MRI Lumbar Spine WO Contrast (07/31/2024) Anatomical Region Laterality Modality Spine N/A Magnetic Resonan ce 07/31/2024 Impressions 07/31/2024 1:55 PM CDT 8MM anterolisthesis of L4 and L5 Severe degenerative spondylosis at L4-L5 and L5-S1. Moderate to severe degenrative spondylosis at L3-L4. Bernice ALMONTE IMG MRI PROCEDURES Edited Result - Final * Albumin Creatinine Ratio, Urine (07/13/2024 12:54 PM CDT) Creatinine ur 110.6 Not Estab. mg/dL [facility] - 01 Microalbumin, ur 7.3 Not Estab. ug/mL [facility] - 01 Microalbumin/cre at ratio 7 0 - 29 mg/g creat [facility] - 01 Comment: Normal: 0 - 29 Moderately increased: 30 - 300 Severely increased: >300 Urine 07/13/2024 12:5 4 PM CDT 07/13/2024 Narrative [facility] - 07/14/2024 4:11 PM CDT Performed at: - [facility] [address] [id number] Boat Painter: Chris Herrmann PhD, Phone: [phone] Bernice ALMONTE LAB URINE ORDERABLES Final Result [facility] 01 * CBC with auto differential (07/13/2024 12:52 PM CDT) Pathologist [facility] WBC 6.0 3.4 - 10.8 x10E3/uL [facility] - 01 RBC 3.93 3.77 - 5.28 x10E6/uL [facility] - 01 Hgb 11.6 11.1 - 15.9 g/dL [facility] - 01 Hct 35.6 34.0 - 46.6 % [facility] - 01 MCV 91 79 - 97 fL [facility] - 01 MCH 29.5 26.6 - 33.0 pg [facility] - 01 MCHC 32.6 31.5 - 35.7 g/dL [facility] - 01 Rdw 12.4 11.7 - 15.4 % [facility] - 01 Platelets 285 150 - 450 x10E3/uL [facility] - 01 Neutrophils pct 58 Not Estab. % [facility] - 01 Lymphs pct 27 Not Estab. % [facility] - 01 Monocytes pct 11 Not Estab. % [facility] - 01 Eosinophils pct 3 Not Estab. % [facility] - 01 Basophil pct 1 Not Estab. % [facility] - 01 Neutrophil abs 3.5 1.4 - 7.0 x10E3/uL [facility] - 01 Lymphs (Absolute) 1.6 0.7 - 3.1 x10E3/uL [facility] - 01 Monocyte abs 0.7 0.1 - 0.9 x10E3/uL [facility] - 01 Eosinophils, abs 0.2 0.0 - 0.4 x10E3/uL [facility] - 01 Basophils, abs 0.0 0.0 - 0.2 x10E3/uL [facility] - 01 Immature Granulocytes 0 Not Estab. % [facility] - 01 Immature Grans (Abs) 0.0 0.0 - 0.1 x10E3/uL [facility] - 01 Blood 07/13/2024 12:5 2 PM CDT 07/13/2024 Narrative [facility] - 07/14/2024 7:37 AM CDT Performed at: [address] [place] [id number] Boat Painter: Chris Herrmann PhD, Phone: [phone] Bernice ALMONTE LAB BLOOD ORDERABLES Final Result Performing Organization Address City/[facility] Co de Phone Number [facility] - * TSH (07/13/2024 12:52 PM CDT) Pathologist [facility] TSH 1.390 0.450 - 4.500 uIU/mL [facility] - Blood 07/13/2024 12:5 2 PM CDT 07/13/2024 Narrative [facility] - 07/14/2024 7:37 AM CDT Performed at: [address] [place] [id number] Boat Painter: Chris Herrmann PhD, Phone: [phone] Bernice ALMONTE LAB BLOOD ORDERABLES Final Result Performing Organization Address City/[facility] Co de Phone Number [facility] - * (ABNORMAL) Hemoglobin A1c (07/13/2024 12:52 PM CDT) Hgb A1C 5.9(H) 4.8 - 5.6 % [facility] - 01 Comment: Prediabetes: 5.7 - 6.4 Diabetes: >6.4 Glycemic control for adults with diabetes: <7.0 Blood 07/13/2024 12:5 2 PM CDT 07/13/2024 Narrative [facility] - 07/14/2024 7:37 AM CDT Performed at: [address] [place] [id number] Boat Painter: Chris Herrmann PhD, Phone: [phone] Bernice ALMONTE LAB BLOOD ORDERABLES Final Result Performing Organization Address [facility] Co de Phone Number [facility] - * Lipid panel (07/13/2024 12:52 PM CDT) Cholesterol 165 100 - 199 mg/dL [facility] - 01 Triglycerides 118 0 - 149 mg/dL [facility] - 01 HDL Cholesterol 66 >39 mg/dL [facility] - 01 VLDL 21 5 - 40 mg/dL [facility] - 01 LDL, calculated 78 0 - 99 mg/dL [facility] - 01 Blood 07/13/2024 12:5 2 PM CDT 07/13/2024 Narrative [facility] - 07/14/2024 7:37 AM CDT Performed at: - [address] [id number] Boat Painter: Chris Herrmann PhD, Phone: [phone] Bernice ALMONTE LAB BLOOD ORDERABLES Final Result Performing Organization Address [facility] Co de Phone Number [facility] - * (ABNORMAL) Comprehensive metabolic panel (07/13/2024 12:52 PM CDT) Glucose 108(H) 70 - 99 mg/dL [facility] - 01 BUN 12 8 - 27 mg/dL [facility] - 01 Creatinine, Serum 0.86 0.57 - 1.00 mg/dL [facility] - 01 eGFR 66 >59 mL/min/1.7 3 [facility] - 01 BUN/creat ratio 14 12 - 28 [facility] - 01 Sodium 131(L) 134 - 144 mmol/L [facility] - 01 Potassium, sr 4.3 3.5 - 5.2 mmol/L [facility] - 01 Chloride 92(L) 96 - 106 mmol/L [facility] - 01 CO2 26 20 - 29 mmol/L [facility] - 01 Calcium 9.3 8.7 - 10.3 mg/dL [facility] - 01 Protein, sr 6.0 6.0 - 8.5 g/dL [facility] - 01 Albumin 4.0 3.7 - 4.7 g/dL [facility] - 01 Globulin, Total 2.0 1.5 - 4.5 g/dL [facility] - 01 Bilirubin, Total 0.4 0.0 - 1.2 mg/dL [facility] - 01 Alk phos 53 44 - 121 IU/L [facility] - 01 AST 20 0 - 40 IU/L [facility] - 01 ALT 10 0 - 32 IU/L [facility] - 01 Blood 07/13/2024 12:5 2 PM CDT 07/13/2024 Narrative [facility] - 07/14/2024 7:37 AM CDT Performed at: [facility] [address] [id number] Boat Painter: Chris Herrmann PhD, Phone: [phone] Bernice ALMONTE LAB BLOOD ORDERABLES Final Result [facility] - 01 * Dexa Axial Skeleton Bone Density 1 or 2 Site (06/14/2024 1:56 PM BOROUGH COORDINATOR) Anatomical Region Laterality Modality Body N/A Mammography 06/14/2024 8:59 PM BOROUGH COORDINATOR Narrative 06/14/2024 9:00 PM BOROUGH COORDINATOR EXAM DESCRIPTION: DEXA AXIAL SKELETON BONE DENSITY 1 OR MORE SITES REASON FOR STUDY: 88 y/o year old F with given history of: menopause Human Resources File Clerk/Model: [employer] A (S/N [id number]) Facility LSC value of 0.022 for the AP spine, 0.027 for the femur, and 0.023 for the forearm. CLINICAL INFORMATION: Current height: 59.5 inches Maximum height: 63 inches Weight: 156 pounds Risk factors: Postmenopausal COMPARISON: 10/24/2020 FINDINGS: AP LUMBAR SPINE L1-L4: Total BMD is 1.080 g/cm2 T-score is 0.3 This is increased in comparison to prior exam which is statistically significant. LEFT HIP: Total BMD is 0.786 g/cm2 T-score is -1.3 This is decrease in comparison to prior exam which is statistically significant. Femoral neck BMD is 0.634 g/cm2 T-score is -1.9 FRAX: 10 year risk for a major osteoporotic fracture is 14 %, 10 year risk for a hip fracture is 4.3 % IMPRESSION: Low Bone Mass. REFERENCE: Bone mineral density: T-Score: Normal (T-score above or = -1.0) Low bone mass (T-score between -1.0 and -2.5) replaces the previously used term osteopenia Osteoporosis (T-score = or below -2.5) Z-Score: Within the expected range for age (Z-score above -2.0) Below the expected range for age (Z-score is -2.0 or below) Please see below follow up recommendations. Medical evaluation for secondary causes of low bone mineral density may be appropriate. FRAX is a World Health Organization validated fracture risk assessment tool that calculates a person's 10 year probability of a major osteoporosis related fracture and hip fracture. According to the National Osteoporosis Foundation guidelines, postmenopausal women and men age 50 or older with low bone mass and a 10 year probability of a major osteoporosis related fracture = or greater than 20% or a 10 year probability of a hip fracture = or greater than 3% should be considered for pharmacological treatment for the prevention of osteoporosis. For further information, including treatment recommendations, please refer to the 2019 ISCD Official Positions (http://www.iscd.org) and the NOF's Clinician's Guide to Prevention and Treatment of Osteoporosis (http://www.nof.org/professionals/clinical-guidelines) THIS IS AN ELECTRONICALLY VERIFIED FINAL REPORT 06/14/2024 9:00 PM - Electronically signed by Michael Sheriff M.D. MF: JASWANT Report ID: [id number] Reading Location: [address] Note Michael Sheriff MD - 06/14/2024 EXAM DESCRIPTION: DEXA AXIAL SKELETON BONE DENSITY 1 OR MORE SITES REASON FOR STUDY: 88 y/o year old F with given history of: menopause Human Resources File Clerk/Model: [employer] A (S/N [id number]) Facility LSC value of 0.022 for the AP spine, 0.027 for the femur, and0.023 for the forearm. CLINICAL INFORMATION: Current height: 59.5 inches Maximum height: 63 inches Weight: 156 pounds Risk factors: Postmenopausal COMPARISON: 10/24/2020 FINDINGS: AP LUMBAR SPINE L1-L4: Total BMD is 1.080 g/cm2 T-score is 0.3 This is increased in comparison to prior exam which is statistically significant. LEFT HIP: Total BMD is 0.786 g/cm2 T-score is -1.3 This is decrease in comparison to prior exam which is statistically significant. Femoral neck BMD is 0.634 g/cm2 T-score is -1.9 FRAX: 10 year risk for a major osteoporotic fracture is 14 %, 10 year risk for ahip fracture is 4.3 % IMPRESSION: Low Bone Mass. REFERENCE: Bone mineral density: T-Score: Normal (T-score above or = -1.0) Low bone mass (T-score between -1.0 and -2.5) replaces thepreviously used term osteopenia Osteoporosis (T-score = or below -2.5) Z-Score: Within the expected range for age (Z-score above -2.0) Below the expected range for age (Z-score is -2.0 or below) Please see below follow up recommendations. Medical evaluation forsecondary causes of low bone mineral density may be appropriate. FRAX is a World Health Organization validated fracture risk assessmenttool that calculates a person's 10 year probability of a major osteoporosisrelated fracture and hip fracture. According to the National OsteoporosisFoundation guidelines, postmenopausal women and men age 50 or older with low bonemass and a 10 year probability of a major osteoporosis related fracture = or greater than 20% or a 10 year probability of a hip fracture = or greaterthan 3% should be considered for pharmacological treatment for the preventionof osteoporosis. For further information, including treatment recommendations, please referto the 2019 ISCD Official Positions (http://www.iscd.org) and the NOF's Clinician's Guide to Prevention and Treatment of Osteoporosis (http://www.nof.org/professionals/clinical-guidelines) THIS IS AN ELECTRONICALLY VERIFIED FINAL REPORT 06/14/2024 9:00 PM - Electronically signed by Michael Sheriff M.D. MF: JASWANT Report ID: [id number] Reading Location: [id number] Bernice [address] [facility] [place]ED[place] Final R esult * Screening Mammogram Bilateral W Mp (06/14/2024 1:42 PM BOROUGH COORDINATOR) Anatomical Region Laterality Modality Breast Bilateral Mammography Impressions 06/14/2024 4:41 PM BOROUGH COORDINATOR BI-RADS ATLAS category (overall): 2 - Benign There is no mammographic evidence of malignancy. A 1 year screening mammogram is recommended. The patient has been or will be contacted. We recommend annual screening mammography for women at average risk of breast cancer beginning at age 40, based on guidelines of the [employer] (ACR Practice Parameter for the Performance of Screening and Diagnostic Mammography) and [employer]. For women with and elevated risk of breast cancer, please refer to the ACR Practice Parameter for specific screening recommendations. The patient will be entered into a reminder system with a target due date of 1 year for her next screening exam. Narrative 06/14/2024 4:41 PM BOROUGH COORDINATOR Screening Mammogram Bilateral W Mp: 06/14/24 The study was acquired using full field digital technology and interpreted from soft copy. 2D digital mammographic views, as well as 3D digital tomosynthesis were performed in the CC and MLO projections. This study was resulted using Computer-Aided Detection (CAD). CLINICAL: Breast cancer screening by mammogram. Medical history includes breast cancer and radiation therapy. No known family history of breast cancer. COMPARISONS: 10/28/2021 Screening Mammogram Bilateral W Mp 10/24/2020 Screening Mammogram Bilateral W Mp BREAST TISSUE: There are scattered areas of fibroglandular density. FINDINGS: Personal history of right breast cancer s/p conservation therapy. No suspicious masses, suspicious calcifications, or other suspicious findings are seen within either breast. There has been no suspicious change. Bernice [facility] [place]ED[place] Final Result * DIABETES EYE EXAM (01/19/2024 9:29 AM CDT) SCRIBED DIABETIC DILATED EYE EXAM Normal us Historical Provider HEALTH MAINTENANCE Edited Result - Final from Last 3 Months or Most Recently Relevant to Health Maintenance Additional Health Concerns Infection Onset Date Last Indicated C. difficile Comment:07/30/2016 07/29/2016 Insurance MEDICARE [facility] Member Subscriber Plan / Payer (Ef fective 2022-) Name:Gagan Olivares Relation to Subscriber:Self Name:Gagan Olivares Payer ID:[id number] (NAIC) Group ID:Not on file Type:[employer] Address: [facility] [id number] [place] [id number] MEDICARE [facility] Care Teams Surveyor Hydrographic Relationship Specialty Start Date End Date Bernice Saravia PA [address] [place] [id number] PCP - General 06/13/19 Denis Dao MD [address] [place] [address] Radiation Oncologist Radiation Oncology 06/16/21 Misti Sanches NP 1418 [facility] [address] [address] Nurse Practitioner Medical Oncology 11/19/22
--- OUTSIDE RECORDS SUMMARY | 2024-08-12 14:07 | XMS_ITS | Encounter Summary ---
Author Organization [facility] Facility Care Team Providers Care Novelty Twister Operator Name Role Phone Manny Loya MD Unavailable [phone] Bernice Saravia Primary Care Provider [phone]- [phone] Bernice Saravia Primary Care Provider +[phone]- [phone] Lindsey Kelly MD Primary Care Provide r Bernice Saravia Primary Care Provider +1- [phone] Lindsey Kelly MD Primary Care Provide r Bernice Saravia Primary Care Provider +1- [phone] Chris Mcdonough MD, Laz Unavailable +- [phone] Denis Dao MD Unavailable [phone] Misti Sanches CLINICAL PRACTICE CONSULTANT Unavailable + [phone] Encounter Details Date Type Department Care Team (Latest Contact Info) Description 01/29/2017 Orders Only [facility] CLINCONV ProviderArmando MD [address] [place] [address] Social History Tobacco Use Types Packs/Day Years Used Date Smoking Tobacco: Never Assessed Comments Unknown Sex and Gender Information Value Date Recorded Sex Assigned at Not on file Legal Sex Female 3:[address]PRETER Gender Identity Not on file Sexual Orientation Not on file documented as of this encounter Plan of Treatment Not on file documented as of this encounter Procedures Procedure Name Priority Date/Time Associated Diagnosis Comments SCAN - LABS 02/02/2017 12:00 AM CDT SCAN - LABS 01/29/2017 12:00 AM CDT documented in this encounter Results * SCAN - LABS (02/02/2017 12:00 AM CDT) Narrative 02/02/2017 12:00 AM CDT Ordered by an unspecified provider. us Historical Provider Final Res ult * SCAN - LABS (01/29/2017 12:00 AM CDT) Narrative 01/29/2017 12:00 AM CDT Ordered by an unspecified provider. Historical Provider Final Res ult documented in this encounter Visit Diagnoses Not on filedocumented in this encounter Additional Health Concerns Infection Onset Date Last Indicated Resolved Time C. difficile Comment:'07/30/2016 07/29/2016 documented as of this encounter Care Teams Novelty Twister Operator Relationship Specialty Start Date End Date Bernice Saravia PA [address] [place] [address] PCP - General Internal Medicine 11/17/18 04/10/19 Bernice Saravia PA [address] [place] [address] PCP - General 11/15/18 11/16/18 Lindsey Kelly MD [address] [place] [address] PCP - General 04/11/19 04/30/19 Bernice Saravia PA [address] [place] [address] PCP - General Internal Medicine 05/01/19 06/06/19 Lindsey Kelly MD [address] [place], [place] [id number] PCP - General 06/07/19 06/12/19 Bernice Saravia PA [address] [place] [address] PCP - General 06/13/19 Manny Loya MD Medical Oncologist/Hospice Volunteer Medical Oncology 06/17/18 06/15/21 Laz Perez Jr., MD [address] [place] [address] Medical Oncologist/Hospice Volunteer Medical Oncology 06/16/21 11/18/22 Denis Dao MD [address] [place] [address] Radiation Oncologist Radiation Oncology 06/16/21 Misti Sanches NP 1418 [facility] [address] [address] Nurse Practitioner Medical Oncology 11/19/22 documented as of this encounter
--- OUTSIDE RECORDS SUMMARY | 2024-08-12 14:07 | XMS_ITS | Encounter Summary ---
Author Organization [facility] Healthcare Address [address] [place] [address] Care Team Providers Care District Home Economics Agent Name Role Phone Bernice Saravia Primary Care Provider [phone]- [phone] Denis Dao MD Unavailable [phone] Misti Sanches NP Unavailable +- [phone] Encounter Details Date Type Department Care Team (Late st Contact Info) Description 07/14/2024 Results Follow-Up [facility] Medical Group Family Medicine [address] [place] [address] Bernice Saravia PA [address] [facility] [facility] [address] [place] [address] Social History Tobacco Use Types Packs/Day Years Used Date Smoking Tobacco: Never Smokeless Tobacco: Never Alcohol Use Standard Drinks/Week Comments No 0 (1 standard drink = 0.6 oz pur e alcohol) AUDIT-C Answer Date Recorded Frequency of Alcohol Consumption Not on file 07/28/2023 Q2: How many drinks containi ng alcohol do you have on a typical day when you are drinking? 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 difficile Comment:'10 07/30/2016 07/29/2016 documented as of this encounter Care Teams District Home Economics Agent Relationship Specialty Start Date End Date Bernice Saravia PA [address] [place] [address] PCP - General 06/13/19 Denis Dao MD [address] [place] [address] Radiation Oncologist Radiation Oncology 06/16/21 Misti Sanches NP [address] [place] [address] Nurse Practitioner Medical Oncology 11/19/22 documented as of this encounter
--- OUTSIDE RECORDS SUMMARY | 2024-08-12 14:07 | XMS_ITS | Encounter Summary ---
Author Organization [facility] Address [address] [place] [address] Care Team Providers Care Payroll Master Name Role Phone Bernice Saravia PA-C Primary Care Provider [phone] Bhavin Quinonez MD Primary Care Provider + Encounter Details Date Type Department Care Team (Late st Contact Info) Description 03/17/2019 Lab Requisition [facility] Care DermPath Lab [address] [place] [id number] Alen Potts MD [address] [place] [address] Social History Tobacco Use Types Packs/Day Years Used Date Smoking Tobacco: Never Alcohol Use Standard Drinks/Week Comments No 0 (1 standard drink = 0.6 oz pur e alcohol) Comments Unknown Sex and Gender Information Value Date Recorded Sex Assigned at Not on file Legal Sex Female 9:17 AM ABE TEACHER Gender Identity Not on file Sexual Orientation Not on file documented as of this encounter Plan of Treatment Not on file documented as of this encounter Procedures Procedure Name Priority Date/Time Associated Diagnosis Comments DERMATOPATHOLOGY Routine 03/15/2019 12:0 0 AM ABE TEACHER documented in this encounter Results * DERMATOPATHOLOGY (03/15/2019 12:00 AM ABE TEACHER) Case Report Dermatopathology Report Case: [id number] Authorizing Provider: Alen Potts MD Collected: 03/15/2019 12:00 AM Ordering Location: [facility] DermPath Lab Received: 03/17/2019 10:31 AM Pathologist: Columba Martinez MD Specimen: Skin, right paranasal skin 1:23 PM [facility] DERMATOPATHOLOGY LABORATORY Final Diagnosis Specimen A. 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 1:23 PM [facility] DERMATOPATH[facility]Y [facility] Gross Description Specimen A: Received is one formalin filled container labeled with the patient's name and designated right paranasal skin. The specimen consists of a shave biopsy measuring [id number]. Jar 0. 1:23 PM [facility] DERMATOPATHOLOGY [facility]ORAT[facility] Microscopic Description Specimen A. SKIN, right paranasal skin: Neutrophils, histiocytes, and multinucleated giant cells are present within the dermis. 1:23 PM [facility] DERMATOPATHOLOGY [facility]ORAT[facility] Disclaimer An external and internal positive and negative controls are appropriate for the histochemical, immunohistochemical and immunofluorescence stain(s) in this case (if any), except where stated explicitly. The performance characteristics of the stain(s) cited in this report were developed and its performance characteristic determined by the Dermatopathology Laboratory at [facility], directed by Dr. Eleni Frankel. These tests need not be, and therefore are not, approved by the [place] Food and Drug Administration. The tests are used for clinical purposes. Billing Codes Specimen Charges Stain Charges 49895 1 1:23 PM [facility] DERMATOPATHOLOGY [facility]ORATORY Embedded Images 1:23 PM [facility] DERMATOPATHOLOGY [facility] Pathology/Cytolog y TISSUE SPECIMEN FROM SKIN / Unknown 03/15/2019 03/17/2019 10:31 AM ABE TEACHER Alen Potts MD LAB - PATHOLOGY/CYTOLOGY ORD ERABLES Final Result DERMATOPATHOLOGY LABORATORY [facility] - Department of Dermatology [address] [facility], 5th [place] [address], [facility] [phone] documented in this encounter Visit Diagnoses Not on filedocumented in this encounter Care Teams Payroll Master Relationship Specialty Start Date End Date Bernice Saravia PA-C [address] [facility] [address] [place] [phone] PCP - General Physician Skip Miner 12/17/20 12/23/20 Bhavin Quinonez MD [address] [facility] [address] [place], [place] [id number] PCP - General 12/24/20 documented as of this encounter
--- OUTSIDE RECORDS SUMMARY | 2024-08-12 14:07 | XMS_ITS | Encounter Summary ---
Author Organization [facility] Facility Care Team Providers Care Pastoral Assistant Name Role Phone Manny Loya MD Unavailable [phone] Bernice Saravia Primary Care Provider [phone]- [phone] Bernice Saravia Primary Care Provider +[phone]- [phone] Lindsey Kelly MD Primary Care Provide r Bernice Saravia Primary Care Provider [phone]- [phone] Lindsey Kelly MD Primary Care Provide r Bernice Saravia Primary Care Provider +1- [phone] Chris Mcdonough MD, Laz Unavailable +- [phone] Denis Dao MD Unavailable [phone] Misti Sanches REGULATORY AFFAIRS ASSISTANT Unavailable + [phone] Encounter Details Date Type Department Care Team (Latest Contact Info) Description 11/17/2017 Orders Only [facility] CLINCONV ProviderArmando MD [address] [place] [address] Social History Tobacco Use Types Packs/Day Years Used Date Smoking Tobacco: Never Smokeless Tobacco: Never Alcohol Use Standard Drinks/Week Comments No 0 (1 standard drink = 0.6 oz pur e alcohol) Comments Unknown Sex and Gender Information Value Date Recorded Sex Assigned at Not on file Legal Sex Female 3:12 AM CONTACT AND SERVICE CLERKS SUPERVISOR Gender Identity Not on file Sexual Orientation Not on file documented as of this encounter Plan of Treatment Not on file documented as of this encounter Procedures Procedure Name Priority Date/Time Associated Diagnosis Comments SCAN - LABS 11/22/2017 12:00 AM CDT documented in this encounter Results * SCAN - LABS (11/22/2017 12:00 AM CDT) Narrative 11/22/2017 12:00 AM CDT Ordered by an unspecified provider. us Historical Provider Final Res ult documented in this encounter Visit Diagnoses Not on filedocumented in this encounter Additional Health Concerns Infection Onset Date Last Indicated Resolved Time C. difficile Comment:'07/30/2016 07/29/2016 documented as of this encounter Care Teams Pastoral Assistant Relationship Specialty Start Date End Date Bernice Saravia PA [address] [place] [address] PCP - General Internal Medicine 11/17/18 04/10/19 Bernice Saravia PA [address] [place] [address] PCP - General 11/15/18 11/16/18 Lindsey Kelly MD [address] [place] [address] PCP - General 04/11/19 04/30/19 Bernice Saravia PA [address] [place] [address] PCP - General Internal Medicine 05/01/19 06/06/19 Lindsey Kelly MD [address] [place] [address] PCP - General 06/07/19 06/12/19 Bernice Saravia PA [address] [place], [place] [id number] PCP - General 06/13/19 Manny Loya MD Medical Oncologist/Advertising Associate Medical Oncology 06/17/18 06/15/21 Laz Perez Jr., MD [address] [place] [address] Medical Oncologist/Advertising Associate Medical Oncology 06/16/21 11/18/22 Denis Dao MD [address] [place], [place] [id number] Radiation Oncologist Radiation Oncology 06/16/21 Misti Sanches NP 1418 [facility] [address] [address] Nurse Practitioner Medical Oncology 11/19/22 documented as of this encounter
--- OUTSIDE RECORDS SUMMARY | 2024-08-12 14:07 | XMS_ITS | Encounter Summary ---
Author Organization [facility] Healthcare Address [address] [place] [address] Care Team Providers Care Physician Extender Name Role Phone Bernice Saravia Primary Care Provider [phone]- [phone] Denis Dao MD Unavailable [phone] Misti Sanches NP Unavailable +- [phone] Encounter Details Date Type Department Care Team (Late st Contact Info) Description 08/01/2024 Results Follow-Up [facility] Medical Group Family Medicine [address] [place] [address] Bernice Saravia PA [address] [facility] [address] [place] [address] Social History Tobacco Use Types [...] on file Legal Sex Female 3:12 AM MANAGER VISUAL Gender Identity Not on file Sexual Orientation Not on file documented as of this encounter Plan of Treatment Not on file documented as of this encounter Visit Diagnoses Not on filedocumented in this encounter Additional Health Concerns Infection Onset Date Last Indicated Resolved Time C. difficile Comment:'10 07/30/2016 07/29/2016 documented as of this encounter Care Teams Physician Extender Relationship Specialty Start Date End Date Bernice Saravia PA [address] [place] [address] PCP - General 06/13/19 Denis Dao MD [address] [place] [address] Radiation Oncologist Radiation Oncology 06/16/21 Misti Sanches NP 1418 [facility] [address] [address] Nurse Practitioner Medical Oncology 11/19/22 documented as of this encounter
--- OUTSIDE RECORDS SUMMARY | 2024-08-12 14:07 | XMS_ITS | Encounter Summary ---
Author Organization [facility] Facility Care Team Providers Care Marketing Administrator Name Role Phone Manny Loya MD Unavailable [phone] Bernice Saravia Primary Care Provider [phone]- [phone] Bernice Saravia Primary Care Provider [phone]- [phone] Lindsey Kelly MD Primary Care Provide r Bernice Saravia Primary Care Provider [phone]- [phone] Lindsey Kelly MD Primary Care Provide r Bernice Saravia Primary Care Provider +[phone]- [phone] Chris Mcdonough MD, Laz Unavailable +- [phone] Denis Dao MD Unavailable [phone] Misti Sanches FINANCIAL ADMINISTRATOR Unavailable + [phone] Encounter Details Date Type Department Care Team (Latest Contact Info) Description 07/28/2016 Orders Only [facility] CLINCONV ProviderArmando MD [address] [place] [address] Social History Tobacco Use Types Packs/Day Years Used Date Smoking Tobacco: Never Assessed Comments Unknown Sex and Gender Information Value Date Recorded Sex Assigned at Not on file Legal Sex Female 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 us Historical Provider Final Res ult documented in this encounter Visit Diagnoses Not on filedocumented in this encounter Additional Health Concerns Infection Onset Date Last Indicated Resolved Time C. difficile Comment:'10 07/30/2016 07/29/2016 documented as of this encounter Care Teams Marketing Administrator Relationship Specialty Start Date End Date Bernice Saravia PA [address] [place] [address] PCP - General Internal Medicine 11/17/18 04/10/19 Bernice Saravia PA [address] [place] [address] PCP - General 11/15/18 11/16/18 Lindsey Kelly MD [address] [place] [address] PCP - General 04/11/19 04/30/19 Bernice Saravia PA [address] [place] [address] PCP - General Internal Medicine 05/01/19 06/06/19 Lindsey Kelly MD [address] [place] [address] PCP - General 06/07/19 06/12/19 Bernice Saravia PA [address] [place] [address] PCP - General 06/13/19 Manny Loya MD Medical Oncologist/Measurer Machine Medical Oncology 06/17/18 06/15/21 Laz Perez Jr., MD [address] [place] [address] Medical Oncologist/Measurer Machine Medical Oncology 06/16/21 11/18/22 Denis Dao MD [address] [place] [address] Radiation Oncologist Radiation Oncology 06/16/21 Misti Sanches NP 1418 [facility] [address] [address] Nurse Practitioner Medical Oncology 11/19/22 documented as of this encounter
--- OUTSIDE RECORDS SUMMARY | 2024-08-12 14:07 | XMS_ITS | Encounter Summary ---
Author Organization [facility] Facility Care Team Providers Care Vending Machine Refiller Name Role Phone Manny Loya MD Unavailable [phone] Bernice Saravia Primary Care Provider [phone]- [phone] Bernice Saravia Primary Care Provider +[phone]- [phone] Lindsey Kelly MD Primary Care Provide r Bernice Saravia Primary Care Provider [phone]- [phone] Lindsey Kelly MD Primary Care Provide r Bernice Saravia Primary Care Provider +[phone]- [phone] Chris Mcdonough MD, Laz Unavailable +- [phone] Denis Dao MD Unavailable [phone] Misti Sanches GROCERY DELIVERER Unavailable + [phone] Encounter Details Date Type Department Care Team (Latest Contact Info) Description 09/25/2015 Orders Only [facility]G CLINCONV ProviderArmando MD [address] [place] [address] Social History Tobacco Use Types Packs/Day Years Used Date Smoking Tobacco: Never Assessed Comments Unknown Sex and Gender Information Value Date Recorded Sex Assigned at Not on file 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 us Historical Provider Final Res ult documented in this encounter Visit Diagnoses Not on filedocumented in this encounter Additional Health Concerns Infection Onset Date Last Indicated Resolved Time C. difficile Comment:'10 07/30/2016 07/29/2016 documented as of this encounter Care Teams Vending Machine Refiller Relationship Specialty Start Date End Date Bernice Saravia PA [address] [place] [address] PCP - General Internal Medicine 11/17/18 04/10/19 Bernice Saravia PA [address] [place] [address] PCP - General 11/15/18 11/16/18 Lindsey Kelly MD [address] [place] [address] PCP - General 04/11/19 04/30/19 Bernice Saravia PA [address] [place] [address] PCP - General Internal Medicine 05/01/19 06/06/19 Lindsey Kelly MD [address] [place] [address] PCP - General 06/07/19 06/12/19 Bernice Saravia PA [address] [place] [address] PCP - General 06/13/19 Manny Loya MD Medical Oncologist/Lathe Winder Medical Oncology 06/17/18 06/15/21 Laz Perez Jr., MD [address] [place] [address] Medical Oncologist/Lathe Winder Medical Oncology 06/16/21 11/18/22 Denis Dao MD [address] [place] [address] Radiation Oncologist Radiation Oncology 06/16/21 Misti Sanches NP 1418 [facility] [address] [address] Nurse Practitioner Medical Oncology 11/19/22 documented as of this encounter
--- OUTSIDE RECORDS SUMMARY | 2024-08-12 14:07 | XMS_ITS | Encounter Summary ---
Author Organization [facility] Healthcare Address [address] [place] [address] Care Team Providers Care Tank Truck Operator Name Role Phone Bernice Saravia Primary Care Provider [phone] Denis Dao MD Unavailable [phone] Misti Sanches NP Unavailable +- [phone] Encounter Details Date Type Department Care Team (Late st Contact Info) Description 06/15/2024 Results Follow-Up [facility] Medical Group Family Medicine [address] [place] [address] Bernice Saravia PA [address] [place] [address] Social History Tobacco Use Types [...] on file 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 difficile Comment:'10 07/30/2016 07/29/2016 documented as of this encounter Care Teams Tank Truck Operator Relationship Specialty Start Date End Date Bernice Saravia PA [address] [place] [address] PCP - General 06/13/19 Denis Dao MD [address] [place] [address] Radiation Oncologist Radiation Oncology 06/16/21 Misti Sanches NP [address] [place] [address] Nurse Practitioner Medical Oncology 11/19/22 documented as of this encounter
--- OUTSIDE RECORDS SUMMARY | 2024-08-12 14:07 | XMS_ITS | Encounter Summary ---
Author Organization [facility] Address [address] [place] [address] Care Team Providers Care Boiler Tube Reamer Name Role Phone Bernice Saravia PA-C Primary Care Provider [phone] [phone] Bhavin Quinonez MD Primary Care Provider + Encounter Details Date Type Department Care Team (Late st Contact Info) Description 11/14/2020 Lab Requisition [facility] Care DermPath Lab [address] [place] [id number] Alen Potts MD [address] [place] [address] Social History Tobacco Use Types Packs/Day Years Used Date Smoking Tobacco: Never Alcohol Use Standard Drinks/Week Comments No 0 (1 standard drink = 0.6 oz pur e alcohol) Comments Unknown Sex and Gender Information Value Date Recorded Sex Assigned at Not on file 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 DermPath Lab Received: 11/14/2020 01:05 PM Pathologist: Breann Frankel MD Specimens: A) - Skin, left scalp B) - Skin, right mid cheek C) - Skin, right lower cheek D) - Skin, left cheek 5:00 PM [facility] DERMATOPATHOLOGY LABORATORY Final Diagnosis Specimen A. 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 SKIN, right mid cheek: BASAL CELL CARCINOMA, NODULAR TYPE (C44.319) Specimen C. SKIN, right lower cheek: BASAL CELL CARCINOMA, NODULAR TYPE (C44.319) Specimen D. SKIN, left cheek: BASAL CELL CARCINOMA, NODULAR TYPE (C44.319) 5:00 PM [facility] DERMATOPATHOLOGY LABORATORY Clinical History A-D: R/O BCC 5:00 PM [facility] DERMATOPATHOLOGY LABORATORY Gross Description Specimen A: Received is one formalin filled container labeled with the patient's name and designated left scalp. The specimen consists of a shave biopsy measuring 9x7x2 mm. Jar 0. Specimen B: Received is one formalin filled container labeled with the patient's name and designated right mid cheek. The specimen consists of a shave biopsy measuring 8x5x2 mm. Jar 0. Specimen C: Received is one formalin filled container labeled with the patient's name and designated right lower cheek. The specimen consists of a shave biopsy measuring 7x3x1 mm. Jar 0. Specimen D: Received is one formalin filled container labeled with the patient's name and designated left cheek. The specimen consists of a shave biopsy measuring 6x4x1 mm. Jar 0. 5:00 PM [facility] DERMATOPATHOLOGY LABORATORY Microscopic Description Specimen A. SKIN, left scalp: Within the dermis there are nodular aggregates of basaloid cells associated with fibromyxoid stroma and epithelial-stromal clefts. At the advancing margin of the neoplasm, there are smaller angulated nests that infiltrate the dermis. An S100/pancytokeratin duplex stain shows that basal cell carcinoma approximates a small nerve fiber. Specimen B. SKIN, right mid cheek: Within the dermis there are aggregates of basaloid cells with a high nuclear to cytoplasmic ratio and peripheral palisading. Specimen C. SKIN, right lower cheek: Within the dermis there are aggregates of basaloid cells with a high nuclear to cytoplasmic ratio and peripheral palisading. Specimen D. SKIN, left cheek: Within the dermis there are aggregates of basaloid cells with a high nuclear to cytoplasmic ratio and peripheral palisading. 1 5:00 PM CDT DERMATOPATHOLOGY LABORATORY Disclaimer An external and internal positive and negative controls are appropriate for the histochemical, immunohistochemical and immunofluorescence stain(s) in this case (if any), except where stated explicitly. The performance characteristics of the stain(s) cited in this report were developed and its performance characteristic determined by the Dermatopathology Laboratory at [facility], directed by Dr. Eleni Frankel. These tests need not be, and therefore are not, approved by the [place] Food and Drug Administration. The tests are used for clinical purposes. Billing Codes Specimen Charges Stain Charges 71902 [id number] [id number] 54788 1 1 1 1 30114 1 1 5:00 PM CDT DERMATOPATHOLOGY LABORATORY Embedded Images 1 5:00 PM CDT DERMATOPATHOLOGY LABORATORY Pathology/Cytology TISSUE SPECIMEN FROM SKIN / Unknown 11/13/2020 11/14/2020 1:05 PM CDT Miscellaneous samples (specimen) TISSUE SPECIMEN FROM SKIN / Unknown 11/13/2020 11/14/2020 1:05 PM CDT Miscellaneous samples (specimen) TISSUE SPECIMEN FROM SKIN / Unknown 11/13/2020 11/14/2020 1:05 PM CDT Miscellaneous samples (specimen) TISSUE SPECIMEN FROM SKIN / Unknown 11/13/2020 11/14/2020 1:05 PM CDT Alen Potts MD LAB - PATHOLOGY/CYTOLOGY ORD ERABLES Final Result DERMATOPATHOLOGY LABORATORY [facility] - Department of Dermatology [address] [phone] documented in this encounter Visit Diagnoses Not on filedocumented in this encounter Care Teams Boiler Tube Reamer Relationship Specialty Start Date End Date Bernice Saravia PA-C [address] [facility] [address] [place] [address] PCP - General Physician Replenishment Buyer 12/17/20 12/23/20 Bhavin Quinonez MD [address] [facility] [address] [place], [place] [id number] PCP - General 12/24/20 documented as of this encounter
--- OUTSIDE RECORDS SUMMARY | 2024-08-12 14:07 | XMS_ITS | Encounter Summary ---
Author Organization [facility] Address [address] [place] [address] Care Team Providers Care Bicycle Rental Clerk Name Role Phone Bernice Saravia Primary Care Provider [phone]- [phone] Denis Dao MD Unavailable [phone] Misti Sanches NP Unavailable +- [phone] Encounter Details Date Type Department Care Team (Late st Contact Info) Description 06/15/2024 Results Follow-Up [facility] Family Medicine 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 CONTROL APPLICATOR documented in this encounter Plan of Treatment Not on file documented as of this encounter Visit Diagnoses Not on filedocumented in this encounter Additional Health Concerns Infection Onset Date Last Indicated Resolved Time C. difficile Comment:'10 07/30/2016 07/29/2016 documented as of this encounter Care Teams Bicycle Rental Clerk Relationship Specialty Start Date End Date Bernice Saravia PA [address] [place] [address] PCP - General 06/13/19 Denis Dao MD [address] [place] [address] Radiation Oncologist Radiation Oncology 06/16/21 Misti Sanches NP [address] [address] Nurse Practitioner Medical Oncology 11/19/22 documented as of this encounter
--- OUTSIDE RECORDS SUMMARY | 2024-08-12 14:07 | XMS_ITS | Encounter Summary ---
Author Organization [facility] Care Team Providers Care Imaging Tech Name Role Phone Manny Loya MD Unavailable Bernice Saravia Primary Care Provider [phone]- [phone] Bernice Saravia Primary Care Provider [phone]- [phone] Lindsey Kelly MD Primary Care Provide r Bernice Saravia Primary Care Provider [phone]- [phone] Lindsey Kelly MD Primary Care Provide r Bernice Saravia Primary Care Provider [phone]- [phone] Chris Mcdonough MD, Laz Unavailable +- [phone] Denis Dao MD Unavailable [phone] Misti Sanches DIVISIONAL HUMAN RESOURCES DIRECTOR Unavailable + [phone] Encounter Details Date Type Department Care Team (Latest Contact Info) Description 02/15/2017 Orders Only [facility] ProviderArmando MD [address] [place] [address] Social History Tobacco Use Types Packs/Day Years Used Date Smoking Tobacco: Never Assessed Comments Unknown Sex and Gender Information Value Date Recorded Sex Assigned at Not on file Legal Sex Female 3:12 AM RESPIRATORY THERAPY AIDE Gender Identity Not on file Sexual Orientation Not on file documented as of this encounter Plan of Treatment Not on file documented as of this encounter Procedures Procedure Name Priority Date/Time Associated Diagnosis Comments COLONOSCOPY - SCAN 02/15/2017 12 :00 AM RESPIRATORY THERAPY AIDE documented in this encounter Results * COLONOSCOPY - SCAN (02/15/2017 12:00 AM RESPIRATORY THERAPY AIDE) Narrative 02/15/2017 12:00 AM RESPIRATORY THERAPY AIDE Ordered by an unspecified provider. us Historical Provider Final Res ult documented in this encounter Visit Diagnoses Not on filedocumented in this encounter Additional Health Concerns Infection Onset Date Last Indicated Resolved Time C. difficile Comment:'07/30/2016 07/29/2016 documented as of this encounter Care Teams Imaging Tech Relationship Specialty Start Date End Date Bernice Saravia PA [address] [place] [address] PCP - General Internal Medicine 11/17/18 04/10/19 Bernice Saravia PA [address] [place] [address] PCP - General 11/15/18 11/16/18 Lindsey Kelly MD [address] [place] [address] PCP - General 04/11/19 04/30/19 Bernice Saravia PA [address] [place] [address] PCP - General Internal Medicine 05/01/19 06/06/19 Lindsey Kelly MD [address] [place] [address] PCP - General 06/07/19 06/12/19 Bernice Saravia PA [address] [place] [address] PCP - General 06/13/19 Manny Loya MD Medical Oncologist/Podiatric Foot And Ankle Specialist Medical Oncology 06/17/18 06/15/21 Laz Perez Jr., MD [address] [place] [address] Medical Oncologist/Podiatric Foot And Ankle Specialist Medical Oncology 06/16/21 11/18/22 Denis Dao MD [address] [place] [address] Radiation Oncologist Radiation Oncology 06/16/21 Misti Sanches NP [address] [facility] [address] [facility] [address] [place] [address] Nurse Practitioner Medical Oncology 11/19/22 documented as of this encounter
--- OUTSIDE RECORDS SUMMARY | 2024-08-12 14:07 | XMS_ITS | Referral Summary ---
Author Organization [facility] Address [address] [place] [address] Care Team Providers Care Brim Plater Name Role Phone Bernice Saravia Primary Care Provider + [phone] Denis Dao MD Unavailable Misti Sanches NP Unavailable + [phone] Encounters Date Type Department Care Team Description 08/01/2024 Results Follow-Up [address] [place] [address] [phone] Bernice Saravia PA 07/19/2024 1:30 PM CDT Office Visit [address] [place] [address] [phone] Bernice Saravia PA Medicare annual wellness visit, subsequent (Primary Dx); SOB (shortness of breath) on exertion; Murmur; Non-seasonal allergic rhinitis, unspecified trigger; Lumbar back pain with radiculopathy affecting left lower extremity; Gastroesophageal reflux disease without esophagitis; Anxiety; Acquired hypothyroidism; Hypertension associated with diabetes (HCC); Controlled type 2 diabetes mellitus without complication, without long-term current use of insulin (HCC); BMI 29.0-29.9,adult 07/14/2024 Results Follow-Up [address] [place] [address] [phone] Bernice Saravia PA 07/10/2024 Orders Only [address] [place] [address] Bernice Saravia PA Hypertension associated with diabetes (HCC) (Primary Dx); Acquired hypothyroidism; Controlled type 2 diabetes mellitus with complication, without long-term current use of insulin (HCC); Medicare annual wellness visit, subsequent; Other fatigue; Hypercholesteremia 06/15/2024 Results Follow-Up [address] [place] [address] Bernice Saravia PA 06/15/2024 Results Follow-Up [address] [place] [phone] Bernice Saravia PA 06/14/2024 1:29 PM FINANCIAL REPORTING SPECIALIST - 06/14/2024 11:59 PM FINANCIAL REPORTING SPECIALIST Hospital Encounter [address] [address] Menopause Discharge Disposition: Discharge to home or self care 06/14/2024 1:28 PM FINANCIAL REPORTING SPECIALIST - 06/14/2024 11:59 PM [facility] Hospital Encounter [address] [address] Discharge Disposition: Discharge to home or self care from Last 3 Months Allergies Active Allergy Reactions Criticality Noted Date [...] times a day 15 mL 2 07/20/19 25 Active metFORMIN (GLUCOPHAGE) 500 mg tabletIndications :Controlled type 2 diabetes mellitus with complication, without long-term current use of insulin (HCC) TAKE 1 TABLET BY MOUTH DAILY 90 tablet 3 06/07/19 25 2024 Discontinued Active Problems Problem Noted Date Diagnosed [...] consider referral to Dr. Misti Palma at [facility]. Medicare annual wellness visit, subsequent 07/31 Assessment [...] 05/19/2020 Assessment & Plan (05/19/2020 9:09 PM FINANCIAL REPORTING SPECIALIST): Patient to presume positive COVID until results are available and self isolate for 14 days from the onset of sxs. Check COVID test thru [facility] collection site in [place]. Treat sxs with Tylenol, Cough/cold medication otc [...] water often. If needed, use a hand commercial collector that contains at least 60% alcohol. Clean [...] management Assessment & Plan (03/06/2020 5:15 PM FINANCIAL REPORTING SPECIALIST): Continue with pain management. May call if desires to start Gabapentin [facility] from consistent activity. Assessment & Plan (03/05/2019 9:23 PM FINANCIAL REPORTING SPECIALIST): Conitnue with Pain management Assessment & Plan (11/02/2018 3:51 PM CDT): Persistent lumbar pain with radiation into left LE. 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 Was told could reoccur. PT has helped but the sxs are not resolving. Recommend MRI lumbar spine. Prefers [facility] so comparison can be made. Controlled type 2 diabetes celio hunter without complication, without long-term current use of insulin 09/04/2018 Assessment & Plan (08/04/2024 9:30 PM CDT): Stressed importance of continued A1c control to minimize the structural steel engineer effects of diabetes. Bring accuchecks to office [...] of continued A1c control to minimize the mcc effects of diabetes. Bring accuchecks to office [...] of continued A1c control to minimize the structural steel engineer effects of diabetes. Bring accuchecks to office [...] of continued A1c control to minimize the structural steel engineer effects of diabetes. Bring accuchecks to office when instructed to do so. Check A1c about every 3-6 months. Take medication as prescribed. Get annual eye exam. Encouraged MAGDY/Statin if able to tolerate. Encouraged weight control and encouraged diabetic diet and exercise. Tightly controlled. Continue Glucophage 500 daily Assessment & Plan (07/20/2021 10:18 PM CDT): Stressed importance of continued A1c control to minimize the structural steel engineer effects of diabetes. Bring accuchecks to office [...] of continued A1c control to minimize the structural steel engineer effects of diabetes. Bring accuchecks to office when instructed to do so. Check A1c about every 3-6 months. Take medication as prescribed. Get annual eye exam. Encouraged MAGDY/Statin if able to tolerate. Encouraged weight control and encouraged diabetic diet and exercise. Assessment & Plan (08/03/2020 11:49 PM CDT): Stressed importance of continued A1c control to minimize the structural steel engineer effects of diabetes. Bring accuchecks to office [...] of continued A1c control to minimize the structural steel engineer effects of diabetes. Bring accuchecks to office when instructed to do so. Check A1c about every 3-6 months. Take medication as prescribed. Get annual eye exam. Encouraged MAGDY/Statin if able to tolerate. Encouraged weight control and encouraged diabetic diet and exercise. Continue metformin. Assessment & Plan (03/05/2019 9:24 PM FINANCIAL REPORTING SPECIALIST): Stressed importance of continued A1c control to minimize the mcc effects of diabetes. Bring accuchecks to office [...] of continued A1c control to minimize the structural steel engineer effects of diabetes. Bring accuchecks to office [...] losartan Assessment & Plan (03/05/2019 9:23 PM FINANCIAL REPORTING SPECIALIST): Bp is stable/in acceptable range for any [...] levothyroxine Assessment & Plan (03/05/2019 9:24 PM FINANCIAL REPORTING SPECIALIST): Continue synthroid Check labs IBS (irritable bowel [...] Klonopin Assessment & Plan (03/05/2019 9:25 PM FINANCIAL REPORTING SPECIALIST): Continue with the Cymbalta Assessment & Plan [...] Assessment & Plan (08/09/2023 1:21 AM CDT): Marilee fajardo currently with p.r.n. omeprazole Assessment & Plan (07/31/2022 10:49 PM CDT): Continue PPI p.r.n. Assessment & Plan (02/07/2022 9:23 PM CDT): Stable uses medication p.r.n. Assessment & Plan (09/24/2019 3:49 PM CDT): continue PPI Assessment & Plan (03/05/2019 9:23 PM FINANCIAL REPORTING SPECIALIST): Continue PPI prn Malignant neoplasm of centra [...] followup to re-evaluate BMI 31.0-31.9,adult 01/13/2022 07/15/19 Assessment & Plan (02/07/2022 9:25 PM CDT): Discussed the patient's BMI. The BMI is above average. BMI management plan is completed. BMI Follow-up includes: nutrition counseling, exercise counseling and education provided. Flu vaccine need 01/13/2022 08/09/2023 Assessment & Plan (02/07/2022 9:24 PM CDT): Flu vaccine updated in the office BMI 31.0-31.9,adult 07/10/2021 02/08/20 Assessment & Plan (07/10/2021 1:50 PM CDT): [...] and education provided. BMI 31.0-31.9,adult 01/07/2021 07/11/19 22 Assessment & Plan (01/07/2021 1:49 PM CDT): Obesity is unchanged. Discussed the patient's BMI. The BMI is above average. BMI management plan is completed. BMI Follow-up includes: nutrition counseling, exercise counseling and education provided. Pre-diabetes 08/03/2020 01/07/2021 Flu vaccine need 03/06/2020 01/07/2021 Assessment & Plan (03/06/2020 5:15 PM FINANCIAL REPORTING SPECIALIST): Updated in office today Obesity (BMI 30.0-34.9) 03/06/2020 09/11/2020 Assessment & Plan (07/16/2020 1:56 PM CDT): Obesity is unchanged. Discussed the patient's BMI. The BMI is above average. BMI management plan is completed. BMI Follow-up includes: nutrition counseling, exercise counseling and education provided. Assessment & Plan (03/06/2020 5:18 PM FINANCIAL REPORTING SPECIALIST): Obesity is unchanged. Discussed the patient's BMI. [...] 21 Assessment & Plan (03/06/2020 5:17 PM FINANCIAL REPORTING SPECIALIST): Obesity is unchanged. Discussed the patient's BMI. [...] 03/06/2020 Assessment & Plan (03/05/2019 9:26 PM FINANCIAL REPORTING SPECIALIST): Updated in office today Other fatigue 09/04/2018 [...] 20 Assessment & Plan (03/05/2019 9:25 PM FINANCIAL REPORTING SPECIALIST): Weight/BMI is in healthy range. Continue healthy lifestyle to maintain. Assessment & Plan (11/02/2018 3:24 PM CDT): Weight/BMI is in healthy range. Continue healthy lifestyle to maintain. Assessment & Plan (08/07/2018 12:12 AM CDT): Weight/BMI is in healthy range. Continue healthy lifestyle to maintain. Immunizations Immunization Administration Dates Next Due Influenza, Quadrivalent, Hig h Dose, Preservative Free, Intrr 01/13/2023,01/13/2022,01/29/2021,01/30 Influenza, Trivalent, High D ose, Split, Preservative Free, Intramuscular 01/19/2024,02/02/2019,01/05/2018,01/26,01/31/2016 Influenza, Trivalent, IM (MDV) 12/12/2015 Influenza, Unspecified 05/13/2022(Deferr ed: Patient Refused),01/23/2018,02/09/2017, 010 Moderna SARS-CoV-2 Monovalen t Vaccination (12+ YRS) 03/10/2021,07/01/2020,05/30/2020 Pneumococcal Conjugate PCV 13 01/10/2015 Pneumococcal Conjugate, Unspecified 02/09/2014 Pneumococcal Polysaccharide PPV23 09/08/2018,04/2014 Tdap 08/07/2018 ZOSTER LIVE 02/09/2014,01/10/2009 Social History Tobacco Use Types Packs/Day Years [...] on file Legal Sex Female 3:12 AM FINANCIAL REPORTING SPECIALIST Gender Identity Not on file Sexual Orientation Not on file Last Filed Vital Signs Vital Sign Reading [...] 07/19/2024 1:20 PM CDT Plan of Treatment Not on file Procedures Procedure Name Priority Date/Time Associated Diagnosis Comments MRI LUMBAR SPINE WO CONTRAST Schedule Routine, Read Routine (OP Routine) 07/31/2024 Lumbar back pain with radiculopathy affecting left lower extremity ALBUMIN CREATININE RATIO, URINE Routine 07/13/2024 12:54 PM CDT Controlled type 2 diabetes mellitus with complication, without long-term current use of insulin ([facility]) Medicare annual wellness visit, subsequent LIPID PANEL Routine 07/13/2024 12:52 PM CDT Medicare annual wellness visit, subsequent Hypercholesteremia TSH Routine 07/13/2024 12:52 PM CDT Acquired hypothyroidism Medicare annual wellness visit, subsequent HEMOGLOBIN A1C Routine 07/13/2024 12:52 PM CDT Controlled type 2 diabetes mellitus with complication, without long-term current use of insulin ([facility]) Medicare annual wellness visit, subsequent CBC WITH AUTO DIFFERENTIAL Routine 07/13/2024 12:52 PM CDT Medicare annual wellness visit, subsequent Other fatigue COMPREHENSIVE METABOLIC PANEL Routine 07/13/2024 12:52 PM CDT Hypertension associated with diabetes ([facility]) Controlled type 2 diabetes mellitus with complication, without long-term current use of insulin ([facility]) Medicare annual wellness visit, subsequent DEXA AXIAL SKELETON BONE DENSITY 1 OR MORE SITES Schedule Routine, Read Routine (OP Routine) 06/14/2024 1:56 PM FINANCIAL REPORTING SPECIALIST Menopause SCREENING MAMMOGRAM BILATERAL W MP Schedule Routine, Read Routine (OP Routine) 06/14/2024 1:42 PM FINANCIAL REPORTING SPECIALIST Breast cancer screening by mammogram DIABETES EYE [...] 07/14/2024 4:11 PM CDT Performed at: - [address] [id number] French Binder: Chris Herrmann PhD, Phone: [phone] Bernice ALMONTE LAB URINE ORDERABLES Final Result [facility] - 01 * CBC with auto differential (07/13/2024 12:52 PM CDT) [facility] WBC 6.0 3.4 - 10.8 x10E3/uL [facility] [...] 07/14/2024 7:37 AM CDT Performed at: - [facility] [address] [id number] French Binder: Chris Herrmann PhD, Phone: [phone] Bernice ALMONTE LAB BLOOD ORDERABLES Final Result Performing Organization Address City/[facility]/ZIP Co de Phone Number [facility] - 01 * TSH (07/13/2024 12:52 PM CDT) [facility] TSH 1.390 0.450 - 4.500 uIU/mL [facility] - 01 Blood 07/13/2024 12:5 2 PM CDT 07/13/2024 Narrative [facility] - 07/14/2024 7:37 AM CDT Performed at: [address] [id number] French Binder: Chris Herrmann PhD, Phone: [phone] Bernice ALMONTE LAB BLOOD ORDERABLES Final Result Performing Organization Address [facility]/[place] de Phone Number [facility] - 01 * (ABNORMAL) Hemoglobin A1c (07/13/2024 12:52 PM CDT) [facility] Hgb A1C 5.9(H) 4.8 - 5.6 % [facility] - 01 Comment: Prediabetes: 5.7 - 6.4 Diabetes: >6.4 Glycemic control for adults with diabetes: <7.0 Blood 07/13/2024 12:5 2 PM CDT 07/13/2024 Narrative [facility] - 07/14/2024 7:37 AM CDT Performed at: [address] [id number] French Binder: Chris Herrmann PhD, Phone: [phone] Bernice ALMONTE LAB BLOOD ORDERABLES Final Result Performing Organization Address City/[facility] Co de Phone Number [facility] - 01 * Lipid panel (07/13/2024 12:52 PM CDT) [facility] Cholesterol 165 100 - 199 mg/dL [facility] - 01 Triglycerides 118 0 - 149 mg/dL [facility] - 01 HDL Cholesterol 66 >39 mg/dL [facility] - 01 VLDL 21 5 - 40 mg/dL [facility] - 01 LDL, calculated 78 0 - 99 mg/dL [facility] - 01 Blood 07/13/2024 12:5 2 PM CDT 07/13/2024 Narrative [facility] - 07/14/2024 7:37 AM CDT Performed at: 01 - [address] [id number] French Binder: Chris Herrmann PhD, Phone: [phone] Bernice ALMONTE LAB BLOOD ORDERABLES Final Result [facility] - 01 * (ABNORMAL) Comprehensive metabolic panel (07/13/2024 12:52 PM CDT) [facility] Glucose 108(H) 70 - 99 mg/dL [facility] [...] - 07/14/2024 7:37 AM CDT Performed at: [address] [id number] French Binder: Chris Herrmann PhD, Phone: [phone] Bernice ALMONTE LAB BLOOD ORDERABLES Final Result [facility] - 01 * Dexa Axial Skeleton Bone Density 1 or 2 Site (06/14/2024 1:56 PM FINANCIAL REPORTING SPECIALIST) Anatomical Region Laterality Modality Body N/A Mammography 06/14/2024 8:59 PM FINANCIAL REPORTING SPECIALIST Narrative 06/14/2024 9:00 PM FINANCIAL REPORTING SPECIALIST EXAM DESCRIPTION: DEXA AXIAL SKELETON BONE DENSITY 1 OR MORE SITES REASON FOR STUDY: 88 y/o year old F with given history of: menopause Practice Business Asst/Model: [employer] (S/N [id number]) Facility LSC value of 0.022 for the [...] Michael Sheriff M.D. MF: JASWANT Report ID: [id number] Reading Location: [place] [address] Procedure Note Michael Sheriff MD - 06/14/2024 EXAM DESCRIPTION: DEXA AXIAL SKELETON BONE DENSITY 1 OR MORE SITES REASON FOR STUDY: 88 y/o year old F with given history of: menopause Practice Business Asst/Model: [employer] (S/N [id number]) Facility LSC value of 0.022 for the [...] Michael Sheriff M.D. MF: JASWANT Report ID: [id number] Reading Location: [id number] Bernice ALMONTE IMSelena DXA PROCEDURES Final R esult * Screening Mammogram Bilateral W Mp (06/14/2024 1:42 PM FINANCIAL REPORTING SPECIALIST) Anatomical Region Laterality Modality Breast Bilateral Mammography Impressions 06/14/2024 4:41 PM FINANCIAL REPORTING SPECIALIST BI-RADS ATLAS category (overall): 2 - Benign There is no mammographic evidence of malignancy. A 1 year screening mammogram is recommended. The patient has been or will be contacted. We recommend annual screening mammography for women at average risk of breast cancer beginning at age 40, based on guidelines of the [employer] (ACR Practice Parameter for the Performance of Screening and Diagnostic Mammography) and [employer]. For women with and elevated risk of breast cancer, please refer to the ACR Practice Parameter for specific screening recommendations. The patient will be entered into a reminder system with a target due date of 1 year for her next screening exam. Narrative 06/14/2024 4:41 PM FINANCIAL REPORTING SPECIALIST Screening Mammogram Bilateral W Mp: 06/14/24 The [...] has been no suspicious change. Bernice ALMONTE IMG MAMMO PROCEDURES Final Result * DIABETES EYE EXAM (01/19/2024 9:29 AM CDT) SCRIBED DIABETIC DILATED EYE EXAM Normal Historical Provider HEALTH MAINTENANCE Edited Result - Final from Last 3 Months or Most Recently Relevant to Health Maintenance Additional Health Concerns Infection Onset Date Last Indicated C. difficile Comment:'10 07/30/2016 07/29/[address] [facility] MEDICARE [facility] Care Teams Brim Plater Relationship Specialty Start Date End Date Bernice Saravia PA [address] [place] [address] PCP - General 06/13/19 Denis Dao MD [address] [place] [address] Radiation Oncologist Radiation Oncology 06/16/21 Misti Sanches NP [facility] [address] [address] Nurse Practitioner Medical Oncology 11/19/22
--- OUTSIDE RECORDS SUMMARY | 2024-08-12 14:07 | XMS_ITS | Clinical Summary ---
Author Organization [facility] Care Team Providers Care Control Panel Builder Name Role Phone Unavailable Primary Care Provider Unavailabl e Social History Tobacco Use Types Packs/Day Years Used Date Smoking Tobacco: Never Assessed Comments Unknown Sex and Gender Information Value Date Recorded Sex Assigned at Not on file Legal Sex Female 2:59 PM WEBSITE/BLOG EDITOR Gender Identity Not on file Sexual Orientation Not on file Plan of Treatment Health Maintenance Due Date Last Done Comments DEXA Bone Density 1935 Hepatitis C Virus (HCV) Screening 1935 TdaP Immunization 1935 Zoster Immunization (2 of 3) 03/07/2009 01/10/2009 Respiratory Syncytial Virus (RSV) Immunization (Adult) (1 - 1-dose 75+ series) 2012 Pneumococcal Immunization (50+ years) (2 of 2 - PPSV23) 01/11/2016 01/10/2015 Influenza Immunization (#1) 12/12/202301/11, 02/02/2019, 01/05/2018, Additional history exists SARS-COV-2 Immunization ( season) 2023 Hepatitis B Immunization Aged Out No longer eligible based on patient's age to complete this topic Meningococcal Immunization (ACWY) Aged Out No longer eligible based on patient's age to complete this topic Rotavirus Immunization Aged Out No lo nger eligible based on patient's age to complete this topic
--- OUTSIDE RECORDS SUMMARY | 2024-08-12 14:07 | XMS_ITS | Clinical Summary ---
Author Organization [facility] Address [address] [facility] [place] [address] Care Team Providers Care Garden Equipment Mechanic Name Role Phone Bhavin Quinonez MD Primary Care Provider + Source Comments [facility],non-owned Affiliates and Associated Physician Practices is amultiple site organization consisting of ambulatory clinics and hospital sitesin [place], [place], [place] and [place]. This disclosure is being madepursuant to the Care Everywhere program and may not contain all information available regarding this patient. Last updated 17.[facility] Allergies Active Allergy Reactions Criticality Noted Date Comments Hydrocodone Nausea and/or Vomiting Low 07/30/2016 Stomach/GI Upset Medications * Be aware that medications may not be up to date on this document. Alwaysverify current medications with the patient. indapamide (LOZOL) 2.5 MG tablet Take 2.5 mg by mouth daily. Active levothyroxine (SYNTHROID) 75 MCG tablet Take 75 mcg by mouth daily before breakfast. Active valsartan (DIOVAN) 160 MG tablet Take 160 mg by mouth daily. Active metformin (GLUCOPHAGE) 1000 MG tablet Take 1,000 mg by mouth 2 times daily with breakfast and dinner. Active docusate sodium (COLACE) 100 MG capsule Take 100 mg by mouth daily. Active amLODIPine (NORVASC) 5 MG tablet 1 Active anastrozole (ARIMIDEX) 1 MG tablet 1 Active clonazePAM (KLONOPIN) 0.5 MG tablet 9 Active DULoxetine (CYMBALTA) 60 MG capsule 1 Active gabapentin (NEURONTIN) 100 MG capsule 1 Active losartan (COZAAR) 50 MG tablet 0 Active omeprazole (PRILOSEC) 20 MG capsule 1 Active traZODone (DESYREL) 150 MG tablet 1 Active triamcinolone acetonide (KENALOG) 0.1 % ointment Apply to affected area on arm BID for up to 2 weeks 80 g 1 Active Active Problems Problem Noted Date Diagnosed Date Status post lumbar spine operation 02/19/2010 Spinal stenosis, lumbar ernesto on, with neurogenic claudication 02/19/2010 Resolved Problems Problem Noted Date Diagnosed Date Resolved Date Spinal stenosis, lumbar ernesto on, without neurogenic claudication 12/23/2009 12/31/2009 Immunizations Immunization Administration Dates Next Due INFLUENZA VACCINE 01/01/2010 Social History Tobacco Use Types Packs/Day Years Used Date Smoking Tobacco: Never Smokeless Tobacco: Never Alcohol Use Standard Drinks/Week Comments No 0 (1 standard drink = 0.6 oz pur e alcohol) Comments Unknown Sex and Gender Information Value Date Recorded Sex Assigned at Not on file Legal 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 Gender Identity Not on file Sexual Orientation Not on file Last Filed Vital Signs Vital Sign Reading Time Taken Comments Blood Pressure 145/84 12/31/2020 8:48 AM CDT Pulse 74 12/31/2020 8:48 AM CDT Temperature 37.2 C (99 F) 01/01/2010 8:17 AM CDT Respiratory Rate 18 01/01/2010 8:17 AM CDT Oxygen Saturation 96% 12/01/2016 11:25 AM CDT Inhaled Oxygen Concentration - - Weight 70.8 kg (156 lb) 12/31/2020 8:48 AM CDT Height 156.2 cm (5' 1.5 ) 12/31/2020 8:48 AM CDT Body Mass Index 29 12/31/2020 8:48 AM CDT Plan of Treatment Health Maintenance Due Date Last Done Comments BONE DENSITY TESTING 1935 DTAP/TDAP/TD VACCINES (1 - Tdap) 1956 PNEUMOCOCCAL VACCINE 50+ (1 of 1 - PCV) 10/05/1987 ZOSTER VACCINE (1 of 2) 10/05/1987 Respiratory Syncytial Virus (RSV) Vaccine Pt: or over 60 yrs (1 - 1-dose 75+ series) 2012 COVID-19 VACCINE (3 - season) 2023 07/01/2020, 05/30/2020 DEPRESSION SCREENING 04/12/2024 INFLUENZA VACCINE (Season Ended) 2024 02/02/2019, 01/23/2018, 01/05/2018, Additional history exists HEPATITIS B VACCINE Aged Out No longe r eligible based on patient's age to complete this topic HIB VACCINE Aged Out No longer eligi ble based on patient's age to complete this topic HPV VACCINE Aged Out No longer eligi ble based on patient's age to complete this topic MENINGOCOCCAL (Group B) VACCINE SHARED DECISION-MAKING Aged Out No longer eligible based on patient's age to complete this topic MENINGOCOCCAL GROUPS A/C/Y/W VACCINE Aged Out No longer eligible based on patient's age to complete [place] [address] MEDICARE [facility] Advance Directives * Full Code (Latest Code Status on File) Date Activated Date Inactivated Comments 12/31/2009 3:14 PM 01/01/2010 10:52 PM Care Teams Garden Equipment Mechanic Relationship Specialty Start Date End Date Bhavin Quinonez MD [address] [facility] [address] [place] [address] PCP - General 12/24/20
== END 2024-08-11 13:42 | disposition home or self-care (01) ==
LOC: ANHCARD 13:43
PROVIDERS: PCP Physician Assistant; Visit Provider Physician Assistant
DX: R06.02 Shortness of breath (principal); R01.1 Cardiac murmur, unspecified
CPT/HCPCS: 93306